=== PATIENT | male | born 1985 | race Caucasian/White ===

== ENCOUNTER 2016-05-12 21:13 | Emergency (ER) | payer OTHER ==
[~2016-05-12 21:13] MED LIST: AUGMENTIN875 MG PO
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
--- NOTE | 2016-05-12 22:20 | ED MED RECONCILIATION SUMMARY ---
Patient: GISELA ISRAEL Medication Reconciliation Report [facility] VisitID: [id number] [address] [place] [address] 30y, M Registration Date/Time: 05/12/2016 Weight: 63.5 kg Height/Length: 67 in. BMI: 21.9 ALLERGIES: Erythromycin The patient's Home Medications are listed below: NONE. The source(s) of the original Home Medication information: Not obtained. The following Medications were given to the patient in the Emergency Department: None. The following Medications were prescribed to the patient: None.
--- NOTE | 2016-05-12 22:20 | ED MED RECONCILIATION SUMMARY ---
Patient: GISELA ISRAEL Medication Reconciliation Report [facility] VisitID: [id number] [address] [place] [address] 30y, M Registration Date/Time: 05/12/2016 Weight: 63.5 kg Height/Length: 67 in. BMI: 21.9 ALLERGIES: Erythromycin The patient's Home Medications are listed below: NONE. The source(s) of the original Home Medication information: Not obtained. The following Medications were given to the patient in the Emergency Department: None. The following Medications were prescribed to the patient: None.
--- NOTE | 2016-05-12 22:20 | ED DISCHARGE INSTRUCTIONS ---
Patient: GISELA ISRAEL General Instructions [facility] VisitID: [id number] [place] [address] 30y, M Registration Date/Time: 05/12/2016 Medication refill. Chronic abdominal pain of undetermined cause. Normal exam upon presentation, while in the ED and at discharge. ADDITIONAL INFORMATION Abdominal Pain,Uncertain Cause [Male] Based on your visit today, the exact cause of your abdominalpain is not clear. Your exam and tests do not indicate a dangerous cause at this time. However, the signs of a serious problem may take more time to appear. Although your evaluation was reassuring today, sometimes early in the course of many conditions, exam and lab tests can appear normal. Therefore, it is important for you to watch for any new symptoms or worsening of your condition. Causes It may not be obvious what caused your symptoms. Pay attention to things that do seem to make your symptoms worse or better and discuss this with your doctor when you follow up. Diagnosis The evaluation of abdominal pain in the emergency department may onlyrequire an exam by the doctor or it may include blood, urine or imaging studies, depending on many factors. Sometimes exams and tests can identify a cause but in many cases, a clear cause is not found. Further testing at follow up visits may help to suggest a clear diagnosis. Home Care Rest as much as possible until your next exam. Try to avoid any medications (unless otherwise directed by your doctor), foods, activities, or other factors that you may have contributed to your symptoms. Try to eat foods that you know that you have tolerated well in the past. Certain diets may be recommended for some conditions that cause abdominal pain. However, since the cause of your symptoms may not be clear, discuss your diet more with your primary care provider or specialist for further recommendations. Eating several small meals per day as opposed to 2 or 3 larger meals may help. Monitor closely for anything that may make your symptoms worse or better. Pay close attention to symptoms below that may indicate worsening of your condition. Follow Up and Precautions See your doctoras instructed or sooneror if your symptoms are not improving.In some cases, you may need more testing. When to Seek Medical Attention Contact your doctor or see medical attention ifany of the following occur: Pain is becoming worse You are unable to take your medications due to excessive vomiting Swelling of the abdomen Fever of 100.4F (38C) or higher, or as directed by your health care provider Blood in vomit or bowel movements (dark red or black color) Jaundice (yellow color of eyes and skin) New onset of weakness, dizziness or fainting New onset of chest, arm, back, neck or jaw pain You have been given the following additional information: Abdominal Pain, Unknown Cause, (Male) (Electronically signed by Maria Luisa Pablo A.R.N.P. 05/12/2016 22:19)
--- NOTE | 2016-05-12 22:20 | ED MAR SUMMARY ---
..... Medication Administration Record [facility] [address] [place], [place] [id number] Patient: GISELA ISRAEL Visit ID: [id number] 30y, M Weight: 63.5 kg Height/Length: 67 in BMI: 21.9 ALLERGIES: Erythromycin
--- NOTE | 2016-05-12 22:20 | ED MAR SUMMARY ---
..... Medication Administration Record [facility] [address] [place], [place] [id number] Patient: GISELA ISRAEL Visit ID: [id number] 30y, M Weight: 63.5 kg Height/Length: 67 in BMI: 21.9 ALLERGIES: Erythromycin
== END 2016-05-12 22:08 | disposition home or self-care (01) ==
LOC: ED SRH 21:13
DX: G89.29 Other chronic pain (principal); R10.9 Unspecified abdominal pain; F17.210 Nicotine dependence, cigarettes, uncomplicated

== ENCOUNTER 2016-07-19 20:30 | Emergency (ER) | payer OTHER ==
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
--- NOTE | 2016-07-19 21:08 | ED ORDER SUMMARY ---
..... Patient: GISELA ISRAEL OrderSheet [facility] VisitID: [id number] [address] [place] [address] 30y, M Registration Date/Time: 07/19/2016 ORDER SHEET Weight: 59.4 kg Allergies: Hydrocodone, Erythromycin GENERAL ORDERS: CBC w Diff Urgent (20:47 07/19/2016 HBivens A.R.N.P.) (Ack 20:48 AMcQuoid ER Tech1) (20:53 HBivens A.R.N.P.) (Cancelled: Other20:53 HBivens A.R.N.P.) CMP Urgent (20:47 07/19/2016 HBivens A.R.N.P.) (Ack 20:48 AMcQuoid ER Tech1) (20:53 HBivens A.R.N.P.) (Cancelled: Other20:53 HBivens A.R.N.P.) MEDICATION ORDERS: IV FLUIDS: IV NS : initial bolus 20 mL/kg, then none - (NOW) (20:47 07/19/2016 HBivens A.R.N.P.) (Cancelled: Other20:53 HBivens A.R.N.P.) IV Saline Lock (20:47 07/19/2016 HBivens A.R.N.P.) (Cancelled: Other20:53 HBivens A.R.N.P.) ORDER SHEET NOTES: [Electronically signed by Imelda Man R.N. (:07/19/2016)] [Electronically signed by Maria Luisa PabloR.N.PAlexei (22:22 07/19/2016)] [Electronically locked/signed by Imelda Man R.N. (:07/19/2016)]
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
--- NOTE | 2016-07-19 21:08 | ED ORDER SUMMARY ---
..... Patient: GISELA ISRAEL OrderSheet [facility] VisitID: [id number] [address] [place] [address] 30y, M Registration Date/Time: 07/19/2016 ORDER SHEET Weight: 59.4 kg Allergies: Hydrocodone, Erythromycin GENERAL ORDERS: CBC w Diff Urgent (20:47 07/19/2016 HBivens A.R.N.P.) (Ack 20:48 AMcQuoid ER Tech1) (20:53 HBivens A.R.N.P.) (Cancelled: Other20:53 HBivens A.R.N.P.) CMP Urgent (20:47 07/19/2016 HBivens A.R.N.P.) (Ack 20:48 AMcQuoid ER Tech1) (20:53 HBivens A.R.N.P.) (Cancelled: Other20:53 HBivens A.R.N.P.) MEDICATION ORDERS: IV FLUIDS: IV NS : initial bolus 20 mL/kg, then none - (NOW) (20:47 07/19/2016 HBivens A.R.N.P.) (Cancelled: Other20:53 HBivens A.R.N.P.) IV Saline Lock (20:47 07/19/2016 HBivens A.R.N.P.) (Cancelled: Other20:53 HBivens A.R.N.P.) ORDER SHEET NOTES: [Electronically signed by Imelda Man R.N. (:07/19/2016)] [Electronically signed by Maria Luisa PabloR.N.PAlexei (22:22 07/19/2016)] [Electronically locked/signed by Imelda Man R.N. (:07/19/2016)]
--- NOTE | 2016-07-19 22:22 | ED DISCHARGE INSTRUCTIONS ---
Patient: GISELA ISRAEL General Instructions [facility] VisitID: [id number] [place] [address] 30y, M Registration Date/Time: 07/19/2016 Abscess check INSTRUCTIONS Protect wound and keep wound area clean. Soak in warm soapy water twice daily. (need to get prescriptions filled and take as directed and discussed). Warnings: GENERAL WARNINGS: Return or contact your physician immediately if your condition worsens or changes unexpectedly, if not improving as expected, or if other problems arise. Specifically return if problem worsens. Follow-up: Follow up with your doctor in about two days even if well and for wound check. Call for an appointment. Summary of care provided to patient. Understanding of the discharge instructions verbalized by patient. ADDITIONAL INFORMATION Abscess [Incision & Drainage] An abscess (sometimes called a boil) occurs when bacteria get trapped under the skin and begin to grow. Pus forms inside the abscess as the body responds to the bacteria. An abscess can occur with an insect bite, ingrown hair, blocked oil gland, pimple, cyst, or puncture wound. Treatment of your abscess has required an incision to drain the pus. If the abscess pocket was large, a gauze packing may have been inserted. This will need to be removed and possibly replaced on your next visit. Antibiotics are not required in the treatment of a simple abscess, unless the infection is spreading into the skin around the wound (known as cellulitis). Healing of the wound will take about one to two weeks depending on the size of the abscess. Healthy tissue will grow from the bottom and sides of the opening until it seals over. Home Care: The wound may drain for the first two days. Cover the wound with a clean dry dressing. If the dressing becomes soaked with blood or pus, change it. If a gauze packing was placed inside the abscess cavity, you may be advised to remove it yourself. You may do this in the shower. Once the packing is removed, you should wash the area in the shower or bath 3 to 4 times a day, until the skin opening has closed. If you were prescribed antibiotics, take them as directed until they are all gone. You may use acetaminophen (Tylenol) or ibuprofen (Motrin, Advil) to control pain, unless another pain medicine was prescribed. [ NOTE: If you have liver disease or ever had a stomach ulcer, talk with your doctor before using these medicines.] Follow Up with your doctor as advised by our staff. If a gauze packing was inserted in your wound, it should be removed in 1-2 days. Check your wound every day for the signs of worsening infection listed below. Get Prompt Medical Attention if any of the following occur: Increasing redness or swelling Red streaks in the skin leading away from the wound Increasing local pain or swelling Continued pus draining from the wound two days after treatment Fever of 100.4F (38C) or higher, or as directed by your healthcare provider Staph Infection (MRSA) "Staph" is the short name for the common bacteria called "staphylococcus aureus". Staph bacteria are often present on the skin without causing an infection. If it gets under the skin an infection occurs. This causes redness, tenderness, swelling and sometimes fluid drainage. MRSA stands for "Methicillin-Resistant Staph Aureus". Unlike a common staph infection, MRSA bacteria are resistant to the usual antibiotics and harder to treat. Also, MRSA is more toxic than common staph bacteria. It can spread quickly throughout the body and cause a life-threatening illness. MRSA is spread to others by direct physical contact with the bacteria. MRSA can also be transmitted from items contaminated by a person who has the bacteria, such as bandages, towels, bed sheets, or sports equipment. It is not spread through the air. Once you have a MRSA skin infection, you are at risk of having it recur in the future. If MRSA infection is suspected, the doctor may take a wound culture to confirm the diagnosis. Any abscess will be drained. One or sometimes two antibiotics that work against MRSA will be prescribed. Home Care: 1) Take any antibiotics prescribed exactly as directed until they are gone. 2) Follow the same washing procedures as outlined for Household Members below. 3) Keep draining wounds covered with clean, dry bandages. Change dressings as they become soiled. 4) You and those in contact with you should wash their hands frequently with soap and warm water or use an alcohol-based hand reporting consultant. Do this after each time you change the bandage or touch the wound. 5) Avoid sharing personal items such as towels, washcloths, razors, clothing, or uniforms. Wash soiled sheets, towels or clothes in hot water with laundry detergent. Use an automatic clothes dryer set on high to kill any remaining bacteria. 6) Remove any artificial nails and nail arabic. 7) If you use a gym, wipe down equipment before and after each use. Treatment Of Household Members If you have been diagnosed with possible MRSA infection, those living with you are at higher risk of carrying the bacteria on their skin or in their nose, even if there is no sign of infection. Bacteria must be removed from the skin of all household members (including you) at the same time, so that it is not passed back and forth. Advise them to remove the bacteria as follows: Wash your whole body (scalp to toes) daily for five days with Hibiclens (chlorhexidine). Scrub fingernails with a brush for one minute twice a day. If any skin infections are present (boils, abscess, infected cut) these must be treated by a doctor. Washing alone will not treat a MRSA infection. Clean counter tops and children's toys; do not share personal items such as toothbrush and razors. It is okay to share glasses, plates, utensils. If antibiotic ointment was prescribed use it as directed. Follow Up with your doctor or as advised by our staff. If a wound culture was taken, call as directed in two days to obtain the results. If the culture result is positive for MRSA, tell medical personnel in the future that you were treated for this type of infection. Get Prompt Medical Attention if any of the following occur: -- Increasing redness, swelling or pain -- Red streaks in the skin around the wound -- Weakness or dizziness -- New appearance of pus or drainage from the wound -- New fever over 100.4 F (38.0 C) You have been given the following additional information: Abscess, Incision And Drainage MRSA Skin Infection, Suspected Or Confirmed (Electronically signed by Maria Luisa Pablo A.R.N.P. 07/19/2016 22:22)
--- NOTE | 2016-07-19 22:22 | ED MED RECONCILIATION SUMMARY ---
Patient: GISELA ISRAEL Medication Reconciliation Report [facility] VisitID: [id number] [address] [place] [address] 30y, M Registration Date/Time: 07/19/2016 Weight: 59.4 kg Height/Length: 68 in. BMI: 19.9 ALLERGIES: Erythromycin, Hydrocodone The patient's Home Medications are listed below: THE FOLLOWING MEDICATIONS NEED TO BE RECONCILED: Percocet Oral The source(s) of the original Home Medication information: Not obtained. The following Medications were given to the patient in the Emergency Department: None. The following Medications were prescribed to the patient: None.
--- NOTE | 2016-07-19 22:22 | ED MAR SUMMARY ---
..... Medication Administration Record [facility] [address] [place], [place] [id number] Patient: GISELA ISRAEL Visit ID: [id number] 30y, M Weight: 59.4 kg Height/Length: 68 in BMI: 19.9 ALLERGIES: Erythromycin, Hydrocodone
--- NOTE | 2016-07-19 22:22 | ED MED RECONCILIATION SUMMARY ---
Patient: GISELA ISRAEL Medication Reconciliation Report [facility] VisitID: [id number] [address] [place] [address] 30y, M Registration Date/Time: 07/19/2016 Weight: 59.4 kg Height/Length: 68 in. BMI: 19.9 ALLERGIES: Erythromycin, Hydrocodone The patient's Home Medications are listed below: THE FOLLOWING MEDICATIONS NEED TO BE RECONCILED: Percocet Oral The source(s) of the original Home Medication information: Not obtained. The following Medications were given to the patient in the Emergency Department: None. The following Medications were prescribed to the patient: None.
--- NOTE | 2016-07-19 22:22 | ED MAR SUMMARY ---
..... Medication Administration Record [facility] [address] [place], [place] [id number] Patient: GISELA ISRAEL Visit ID: [id number] 30y, M Weight: 59.4 kg Height/Length: 68 in BMI: 19.9 ALLERGIES: Erythromycin, Hydrocodone
== END 2016-07-19 21:10 | disposition home or self-care (01) ==
LOC: ED SRH 20:30
DX: L02.11 Cutaneous abscess of neck (principal); F17.210 Nicotine dependence, cigarettes, uncomplicated

== ENCOUNTER 2016-08-12 14:05 | Emergency (ER) | payer OTHER ==
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
--- NOTE | 2016-08-12 17:23 | ED ORDER SUMMARY ---
..... Patient: GISELA ISRAEL OrderSheet [facility] VisitID: [id number] [place] [address] 30y, M Registration Date/Time: 08/12/2016 ORDER SHEET Weight: 54.4 kg (stated) Allergies: Erythromycin, Hydrocodone GENERAL ORDERS: CBC w Diff Urgent (15:21 08/12/2016 Aileen BIRMINGHAM) (Ack 15:38 Joseph) (16:21 MWinterer R.N.) CMP Urgent (15:21 08/12/2016 Aileen [place]) (Ack 15:38 Joseph) (16:21 MWinterer R.N.) Lipase Urgent (15:08/12/2016 Aileen [place]) (Ack 15:38 Joseph) (16:21 MWinterer R.N.) UA-Culture if indicated Urgent (15:21 08/12/2016 Aileen [place]) (Ack 15:38 Joseph) (Cancelled: Patient [id number] MWinterer R.N.) MEDICATION ORDERS: IV FLUIDS: IV NS : initial bolus none -, then 500 mL/hr for 2h (NOW); Urgent (15:20 08/12/2016 Aileen B[place]) (Ack 15:22 MWinterer R.N.) (16:21 MWinterer R.N.) Dilaudid IV 1 mg (NOW) (15:21 08/12/2016 Aileen [place]) (Ack 15:22 MWinterer R.N.) (16:21 MWinterer R.N.) Zofran IV 4 mg (NOW) (15:21 08/12/2016 Aileen [place]) (Ack 15:22 MWinterer R.N.) (16:21 MWinterer R.N.) Morphine IV 4 mg (HIGH ALERT MEDICATION, NOW) (17:10 08/12/2016 MWinterer R.N. verbal order read back to Aileen BIRMINGHAM) (17:10 MWinterer R.N.) ORDER SHEET NOTES: [Electronically signed by Rizwana Bettencourt R.N. (17:59 08/12/2016)] [Electronically signed by Harley Herbert MD (06:54 08/15/2016)] [Electronically locked/signed by Rizwana Bettencourt R.N. (17:59 08/12/2016)]
--- NOTE | 2016-08-12 17:23 | ED ORDER SUMMARY ---
..... Patient: GISELA ISRAEL OrderSheet [facility] VisitID: [id number] [place] [address] 30y, M Registration Date/Time: 08/12/2016 ORDER SHEET Weight: 54.4 kg (stated) Allergies: Erythromycin, Hydrocodone GENERAL ORDERS: CBC w Diff Urgent (15:21 08/12/2016 Aileen [place]) (Ack 15:38 Joseph) (16:21 MWinterer R.N.) CMP Urgent (15:21 08/12/2016 Aileen [place]) (Ack 15:38 Joseph) (16:21 MWinterer R.N.) Lipase Urgent (15:08/12/2016 Aileen [place]) (Ack 15:38 Joseph) (16:21 MWinterer R.N.) UA-Culture if indicated Urgent (15:21 08/12/2016 Aileen [place]) (Ack 15:38 Joseph) (Cancelled: Patient [id number] MWinterer R.N.) MEDICATION ORDERS: IV FLUIDS: IV NS : initial bolus none -, then 500 mL/hr for 2h (NOW); Urgent (15:20 08/12/2016 Aileen B[place]) (Ack 15:22 MWinterer R.N.) (16:21 MWinterer R.N.) Dilaudid IV 1 mg (NOW) (15:21 08/12/2016 Aileen B[place]) (Ack 15:22 MWinterer R.N.) (16:21 MWinterer R.N.) Zofran IV 4 mg (NOW) (15:21 08/12/2016 Aileen B[place]) (Ack 15:22 MWinterer R.N.) (16:21 MWinterer R.N.) Morphine IV 4 mg (HIGH ALERT MEDICATION, NOW) (17:10 08/12/2016 MWinterer R.N. verbal order read back to Aileen BIRMING[place]AM) (17:10 MWinterer R.N.) ORDER SHEET NOTES: [Electronically signed by Rizwana Bettencourt R.N. (17:59 08/12/2016)] [Electronically signed by Harley Herbert MD (06:54 08/15/2016)] [Electronically locked/signed by Rizwana Bettencourt R.N. (17:59 08/12/2016)]
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
--- NOTE | 2016-08-15 06:54 | ED MAR SUMMARY ---
..... Medication Administration Record [facility] [address] [place] [address] Patient: GISELA ISRAEL Visit ID: [id number] 30y, M Weight: 54.4 kg Height/Length: 72 in BMI: 16.3 ALLERGIES: Erythromycin, Hydrocodone Start 15:56 08/12/2016 Rizwana Bettencourt R.N., Stop 17:25 08/12/2016 Rizwana Bettencourt R.N. Medication Administered: IV NS (SALINE), Dose: IV Fluids over 2 hour(s), Rate: 500 mL/hr, Site: #1 left AC. Medication Ordered: IV NS : initial bolus none -, then 500 mL/hr for 2h (NOW); Urgent. Given 15:56 08/12/2016 Rizwana Bettencourt R.N. Medication Administered: DILAUDID [IVP] (HYDROMORPHONE HCL PF), Dose: 1 mg IVP over 1 minute(s), Site: #1 left AC. Medication Ordered: Dilaudid IV 1 mg (NOW). Given 15:56 08/12/2016 Rizwana Bettencourt R.N. Medication Administered: ZOFRAN [IVP] (ONDANSETRON HCL), Dose: 4 mg IVP over 1 minute(s), Site: #1 left AC. Medication Ordered: Zofran IV 4 mg (NOW). Given 17:10 08/12/2016 Rizwana Bettencourt R.N. Medication Administered: MORPHINE [IVP], Dose: 4 mg IVP over 1 minute(s), Site: #1 left AC. Medication Ordered: Morphine IV 4 mg (HIGH ALERT MEDICATION, NOW).
--- NOTE | 2016-08-15 06:54 | ED MED RECONCILIATION SUMMARY ---
Patient: GISELA ISRAEL Medication Reconciliation Report [facility] VisitID: [id number] [address] [place] [address] 30y, M Registration Date/Time: 08/12/2016 Weight: 54.4 kg Height/Length: 72 in. BMI: 16.3 ALLERGIES: Erythromycin, Hydrocodone The patient's Home Medications are listed below: THE FOLLOWING MEDICATIONS NEED TO BE RECONCILED: OxyCODONE HCl Oral 5 mg The source(s) of the original Home Medication information: patient The following Medications were given to the patient in the Emergency Department: IV NS IV Fluids bolus 0, then 500 mL/hr, administered: 08/12/2016 3:56:00 PM Dilaudid [IVP] IVP 1 mg, administered: 08/12/2016 3:56:00 PM Zofran [IVP] IVP 4 mg, administered: 08/12/2016 3:56:00 PM Morphine [IVP] IVP 4 mg, administered: 08/12/2016 5:10:00 PM The following Medications were prescribed to the patient: None.
--- NOTE | 2016-08-15 06:54 | ED MED RECONCILIATION SUMMARY ---
Patient: GISELA ISRAEL Medication Reconciliation Report [facility] VisitID: [id number] [address] [place] [address] 30y, M Registration Date/Time: 08/12/2016 Weight: 54.4 kg Height/Length: 72 in. BMI: 16.3 ALLERGIES: Erythromycin, Hydrocodone The patient's Home Medications are listed below: THE FOLLOWING MEDICATIONS NEED TO BE RECONCILED: OxyCODONE HCl Oral 5 mg The source(s) of the original Home Medication information: patient The following Medications were given to the patient in the Emergency Department: IV NS IV Fluids bolus 0, then 500 mL/hr, administered: 08/12/2016 3:56:00 PM Dilaudid [IVP] IVP 1 mg, administered: 08/12/2016 3:56:00 PM Zofran [IVP] IVP 4 mg, administered: 08/12/2016 3:56:00 PM Morphine [IVP] IVP 4 mg, administered: 08/12/2016 5:10:00 PM The following Medications were prescribed to the patient: None.
--- NOTE | 2016-08-15 06:54 | ED DISCHARGE INSTRUCTIONS ---
Patient: GISELA ISRAEL General Instructions [facility] VisitID: [id number] [address] [place] [address] 30y, M Registration Date/Time: 08/12/2016 ABDOMINAL PAIN SP ILIOSTOMY. INSTRUCTIONS (I HAVE NOT FINISHED MY EVALUATION YOU COULD HAVE A LIFE THREATINING CAUSE OF YOUR ABDOMINAL PAIN. IF YOU CHANGE YOUR MIND PLEASE RETURN AND WE WILL FINISH YOUR CARE ALSO CONSIDER SEEING YOUR SURGEON OR THE ED AT [facility] (Electronically signed by Harley Herbert MD 08/15/2016 6:54)
--- NOTE | 2016-08-15 06:54 | ED MAR SUMMARY ---
..... Medication Administration Record [facility] [address] [place] [address] Patient: GISELA ISRAEL Visit ID: [id number] 30y, M Weight: 54.4 kg Height/Length: 72 in BMI: 16.3 ALLERGIES: Erythromycin, Hydrocodone Start 15:56 08/12/2016 Rizwana Bettencourt R.N., Stop 17:25 08/12/2016 Rizwana Bettencourt R.N. Medication Administered: IV NS (SALINE), Dose: IV Fluids over 2 hour(s), Rate: 500 mL/hr, Site: #1 left AC. Medication Ordered: IV NS : initial bolus none -, then 500 mL/hr for 2h (NOW); Urgent. Given 15:56 08/12/2016 Rizwana Bettencourt R.N. Medication Administered: DILAUDID [IVP] (HYDROMORPHONE HCL PF), Dose: 1 mg IVP over 1 minute(s), Site: #1 left AC. Medication Ordered: Dilaudid IV 1 mg (NOW). Given 15:56 08/12/2016 Rizwana Bettencourt R.N. Medication Administered: ZOFRAN [IVP] (ONDANSETRON HCL), Dose: 4 mg IVP over 1 minute(s), Site: #1 left AC. Medication Ordered: Zofran IV 4 mg (NOW). Given 17:10 08/12/2016 Rizwana Bettencourt R.N. Medication Administered: MORPHINE [IVP], Dose: 4 mg IVP over 1 minute(s), Site: #1 left AC. Medication Ordered: Morphine IV 4 mg (HIGH ALERT MEDICATION, NOW).
--- NOTE | 2016-08-15 06:54 | ED DISCHARGE INSTRUCTIONS ---
Patient: GISELA ISRAEL General Instructions [facility] VisitID: [id number] [address] [place] [address] 30y, M Registration Date/Time: 08/12/2016 ABDOMINAL PAIN SP ILIOSTOMY. INSTRUCTIONS (I HAVE NOT FINISHED MY EVALUATION YOU COULD HAVE A LIFE THREATINING CAUSE OF YOUR ABDOMINAL PAIN. IF YOU CHANGE YOUR MIND PLEASE RETURN AND WE WILL FINISH YOUR CARE ALSO CONSIDER SEEING YOUR SURGEON OR THE ED AT [facility].). (Electronically signed by Harley Herbert MD 08/15/2016 6:54)
== END 2016-08-12 17:25 | disposition home or self-care (01) ==
LOC: ED SRH 14:05
DX: R10.12 Left upper quadrant pain (principal); K50.90 Crohn's disease, unspecified, without complications; Z93.2 Ileostomy status
CPT/HCPCS: 90100; 92235; 95059

== ENCOUNTER 2016-08-20 22:59 | Emergency (ER) | payer OTHER ==
--- NOTE | 2016-08-21 00:24 | DIAGNOSTIC IMAGING REPORT ---
PROCEDURE: CT ABD/PELVIS WITH CONTRAST INDICATION: Crohn disease. Recent surgery with colostomy. 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 TECHNIQUE: 125 ml of Isovue 300 were injected intravenously and axial images were obtained of the entire abdomen and pelvis with sagittal and coronal reformations. COMPARISON: Compared CT abdomen and pelvis on 03/06/2016. FINDINGS: ABDOMEN: Postoperative change with vertical ventral midline surgical wound and right lower quadrant abdominal ostomy. Gallbladder is contracted with moderate ingested material in the stomach. Liver, spleen, pancreas, kidneys, and aorta are normal. PELVIS: There is moderate inspissated stool in the bowel of the central pelvis associated with areas of surgical mesh. There is a left lower quadrant abdominal drainage tube which extends posteriorly and caudally into a 7.5 x 4.5 cm presacral proteinaceous fluid collection (most likely rectal pouch). No evidence of free fluid. IMPRESSION: 1. Interim abdominal surgery with right lower quadrant ostomy. 2. There is a left lower quadrant abdominal drain which extends posteriorly and caudally into a 7.5 x 4.5 cm proteinaceous presacral fluid collection (most likely represents a rectal pouch - - although could represent presacral abscess) . 3. Moderate inspissated stool in the bowel of the central pelvis, which seems atypical for patient with history of total colectomy, although this could represent residual rectal pouch. 4. Findings discussed with Dr. Jean Marie Key. All CT scans at this facility use dose modulation, iterative reconstruction, and/or weight-based dosing when appropriate to reduce radiation dose to as low as reasonably achievable.
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
--- NOTE | 2016-08-21 01:51 | ED ORDER SUMMARY ---
..... Patient: GISELA ISRAEL OrderSheet [facility] VisitID: [id number] [place] [address] 30y, M Registration Date/Time: 08/20/2016 ORDER SHEET Weight: 56.6 kg (stated) Allergies: Erythromycin, Hydrocodone GENERAL ORDERS: CT Abd/Pel w Cont (No) (N/A) Urgent (23:18 08/20/2016 Areli Holland) (Ack 23:24 [facility] Housekeeper) (0:09 RFay) CBC w Diff Urgent (23:19 08/20/2016 Areli Holland) (Ack 23:24 [facility]) (23:27 DDavis R.N.) CMP Urgent (23:08/20/2016 Areli Holland) (Ack 23:24 [facility]) (23:27 DDavis R.N.) UA-Culture if indicated Urgent (23:19 08/20/2016 Areli Holland) (Ack 23:24 [facility]) PT with INR Urgent (23:19 08/20/2016 Areli Holland) (Ack 23:24 [facility]) (23:27 DDavis R.N.) Lipase Urgent (23:19 08/20/2016 Areli Holland) (Ack 23:24 [facility]) (23:27 DDavis R.N.) Lactate, Serum Urgent (23:19 08/20/2016 Areli Holland) (Ack 23:24 [facility]) (23:27 DDavis R.N.) Pulse oximeter (23:19 08/20/2016 Areli Holland) (23:22 DDavis R.N.) (Ack 23:24 [facility]) EKG - ER Stat (01:43 08/21/2016 Areli Holland) (2:13 [facility]) MEDICATION ORDERS: IV FLUIDS: IV NS : initial bolus 1000 mL (1000 mL/hr), then none - for X1 (NOW) (23:19 08/20/2016 Areli Holland) (23:25 DDavis R.N.) Fentanyl IV 50 mcg (HIGH ALERT MEDICATION, NOW) (23:19 08/20/2016 Areli Holland) (23:25 DDavis R.N.) Dilaudid IV 1 mg (HIGH ALERT MEDICATION, NOW) (00:01 08/21/2016 DDavis R.N. verbal order read back to Areli Holland) (0:01 DDavis R.N.) IV NS : initial bolus 1000 mL (1000 mL/hr), then none - for X1 (NOW) (00:44 08/21/2016 Areli Holland) (0:50 DDavis R.N.) Dilaudid IV 1 mg (HIGH ALERT MEDICATION, NOW) (00:56 08/21/2016 Areli Holland) (Ack 0:56 DDavis R.N.) (1:33 DDavis R.N.) Dilaudid IV 1 mg (HIGH ALERT MEDICATION, NOW) (02:07 08/21/2016 Areli Holland) (2:18 DDavis R.N.) ORDER SHEET NOTES: [Electronically signed by Huber Bates R.N. (02:08/21/2016)] [Electronically signed by Jean Marie Key Dr. (06:30 08/21/2016)] [Electronically locked/signed by Huber Bates R.N. (:08/21/2016)]
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
--- NOTE | 2016-08-21 01:51 | ED ORDER SUMMARY ---
..... Patient: GISELA ISRAEL OrderSheet [facility] VisitID: [id number] [place] [address] 30y, M Registration Date/Time: 08/20/2016 ORDER SHEET Weight: 56.6 kg (stated) Allergies: Erythromycin, Hydrocodone GENERAL ORDERS: CT Abd/Pel w Cont (No) (N/A) Urgent (23:18 08/20/2016 Areli Holland) (Ack 23:24 [facility] [employer]) (0:09 RFay) CBC w Diff Urgent (23:19 08/20/2016 Areli Holland) (Ack 23:24 [facility] [employer]) (23:27 DDavis R.N.) CMP Urgent (23:08/20/2016 Areli Holland) (Ack 23:24 [facility] [employer]) (23:27 DDavis R.N.) UA-Culture if indicated Urgent (23:19 08/20/2016 Areli Holland) (Ack 23:24 [facility] [employer]) PT with INR Urgent (23:19 08/20/2016 Areli Holland) (Ack 23:24 [facility] [employer]) (23:27 DDavis R.N.) Lipase Urgent (23:19 08/20/2016 Areli Holland) (Ack 23:24 [facility] [employer]) (23:27 DDavis R.N.) Lactate, Serum Urgent (23:19 08/20/2016 Areli Holland) (Ack 23:24 [facility] [employer]) (23:27 DDavis R.N.) Pulse oximeter (23:19 08/20/2016 Areli Holland) (23:22 DDavis R.N.) (Ack 23:24 [facility] [employer]) EKG - ER Stat (01:43 08/21/2016 Areli Holland) (2:13 [facility] [employer]) MEDICATION ORDERS: IV FLUIDS: IV NS : initial bolus 1000 mL (1000 mL/hr), then none - for X1 (NOW) (23:19 08/20/2016 Areli Holland) (23:25 DDavis R.N.) Fentanyl IV 50 mcg (HIGH ALERT MEDICATION, NOW) (23:19 08/20/2016 Areli Holland) (23:25 DDavis R.N.) Dilaudid IV 1 mg (HIGH ALERT MEDICATION, NOW) (00:01 08/21/2016 DDavis R.N. verbal order read back to Areli Holland) (0:01 DDavis R.N.) IV NS : initial bolus 1000 mL (1000 mL/hr), then none - for X1 (NOW) (00:44 08/21/2016 Areli Holland) (0:50 DDavis R.N.) Dilaudid IV 1 mg (HIGH ALERT MEDICATION, NOW) (00:56 08/21/2016 Areli Holland) (Ack 0:56 DDavis R.N.) (1:33 DDavis R.N.) Dilaudid IV 1 mg (HIGH ALERT MEDICATION, NOW) (02:07 08/21/2016 Areli Holland) (2:18 DDavis R.N.) ORDER SHEET NOTES: [Electronically signed by Huber Bates R.N. (02:08/21/2016)] [Electronically signed by Jean Marie Key Dr. (06:30 08/21/2016)] [Electronically locked/signed by Huber Bates R.N. (:08/21/2016)]
--- NOTE | 2016-08-21 01:51 | ED CLINICAL REPORT ---
Clinical Report - Physicians/Mid Levels Formerly [facility] [address] [place] [address] 08/20/2016 23:01 Patient: GISELA ISRAEL Time Seen: 2312. Arrived- By ambulance. Historian- patient and EMS personnel. HISTORY OF PRESENT ILLNESS Chief Complaint: ABDOMINAL PAIN. At its maximum, severity described as severe. When seen in the E.D., severity described as severe. Modifying factors. Not worsened by anything. Not relieved by anything. This started today and is still present and worsening. It was abrupt in onset and has been constant but is not gone now. It is described as diffuse. No radiation. It is described as generalized in location. The patient has had nausea (resolved). No loss of appetite, vomiting or diarrhea. No additional abdominal pain. (states he ran out of his pain medications). No recent travel. Similar symptoms previously: None. Recent medical care: The patient was seen recently by a health care provider (had recent surgery on his colon. hx of crohn's disease.). REVIEW OF SYSTEMS No constipation, black stools, hematemesis, bloody stools or fever. No headache, chest pain or difficulty breathing. no change in ostomy output. reports normal gas and liquid stool. All systems otherwise negative, except as recorded above. PAST HISTORY See nurses notes. Medications: OxyCODONE HCl Oral 10 mg. Allergies: Erythromycin. Hydrocodone. SOCIAL HISTORY Never smoker. History of occasional drug use: marijuana. No alcohol use. No recent travel. Is a local resident. ADDITIONAL NOTES The nursing notes have been reviewed. PHYSICAL EXAM Vital Signs: Blood pressure normal. Oxygen saturation normal. Appearance: Alert. Oriented X3. Patient in mild distress. (non-toxic appearance). Eyes: Pupils equal, round and reactive to light. Eyes normal inspection. ENT: Ears normal. Nose normal. Pharynx normal. Neck: Normal inspection. Neck supple. No meningeal signs. CVS: Normal heart rate and rhythm. Heart sounds normal. Pulses normal. Respiratory: No respiratory distress. Breath sounds normal. Chest nontender. No rales, rhonchi or wheezes. Abdomen: Soft and nontender. Bowel sounds normal. No mass. (ostomy and drain noted with recent abdominal surgery. wounds are c/d/i. no crepitus. normal ostomy output. drain with serosang drainage that is dark red/brown.). Rectal: (fistulla to the perianal area. no erythema. no signs of gangrene. no crepitus.). Skin: Skin warm and dry. Normal skin color. No rash. Normal skin turgor. Extremities: Extremities exhibit normal ROM. No lower extremity edema. Neuro: Oriented X 3. No motor deficit. No sensory deficit. LABS, X-RAYS, AND EKG EKG: No acute process. No acute ischemia. Normal EKG. Normal sinus rhythm. Rate: 86. Normal P waves. Normal YOCASTA. Normal QRS complex. Normal axis. Normal ST and T waves, QT and QTc. The study has been interpreted contemporaneously by me. The study has been independently viewed by me. The EKG appears to be a good tracing. Abdominal CT: PROCEDURE: CT ABD/PELVIS WITH CONTRAST INDICATION: Crohn disease. Recent surgery with colostomy. 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 TECHNIQUE: 125 ml of Isovue 300 were injected intravenously and axial images were obtained of the entire abdomen and pelvis with sagittal and coronal reformations. COMPARISON: Compared CT abdomen and pelvis on 03/06/2016. FINDINGS: ABDOMEN: Postoperative change with vertical ventral midline surgical wound and right lower quadrant abdominal ostomy. Gallbladder is contracted with moderate ingested material in the stomach. Liver, spleen, pancreas, kidneys, and aorta are normal. PELVIS: There is moderate inspissated stool in the bowel of the central pelvis associated with areas of surgical mesh. There is a left lower quadrant abdominal drainage tube which extends posteriorly and caudally into a 7.5 x 4.5 cm presacral proteinaceous fluid collection (most likely rectal pouch). No evidence of free fluid. IMPRESSION: 1. Interim abdominal surgery with right lower quadrant ostomy. 2. There is a left lower quadrant abdominal drain which extends posteriorly and caudally into a 7.5 x 4.5 cm proteinaceous presacral fluid collection (most likely represents a rectal pouch - - although could represent presacral abscess). 3. Moderate inspissated stool in the bowel of the central pelvis, which seems atypical for patient with history of total colectomy, although this could represent residual rectal pouch. Study type: abdomen and pelvis. Abdominal CT performed with IV contrast. The study was independently viewed by me and interpreted by the radiologist. The study was discussed with the radiologist (via phone and pacs). Laboratory Tests: CBC w Diff: (ROZINA: 08/20/2016 23:20) ( [facility] 08/20/2016 23:36) Final results Test Result Flag Units (Reference) WHITE BLOOD COUNT 10.4 K/uL (4.5-11.5) RED BLOOD COUNT 4.24 L M/uL (4.50-5.90) HEMOGLOBIN 11.8 L gm/dL (13.5-17.5) HEMATOCRIT 36.8 L % (41.0-53.0) MEAN CELL VOLUME 87 fL (80-100) MEAN CORPUSCULAR HGB 28 pg (26-34) MEAN CORPUSCULAR HGB CONC 32 g/dL (31-37) RED CELL DISTRIBUTION WIDTH 13.4 % (11.6-14.8) PLATELET COUNT 511 H K/uL (150-400) LYMPH % 17.2 L % (25-40) MONO % 4.8 % (3-14) GRANULOCYTE % 78.0 PT with INR: (ROZINA: 08/20/2016 23:20) ( [facility] 08/20/2016 23:44) Final results Test Result Flag Units (Reference) INR 1.0 (0.8-1.2) Low Intensity Therapy: INR 1.5-2.0 PT range 18.5-23.1Mod.Intensity Therapy: INR 2.0-3.0 PT range 23.1-31.5High Intensity Therapy: INR 2.5-3.5 PT range 27.4-35.5High Intensity Therapy 2: INR 3.0-4.0 PT range 31.5-39.3 Lactate, Serum: (ROZINA: 08/20/2016 23:20) ( [facility] 08/20/2016 23:54) Final results Test Result Flag Units (Reference) LACTIC ACID 1.5 mmol/L (0.4-2.0) CMP: (ROZINA: 08/20/2016 23:20) ( [facility] 08/20/2016 23:50) Final results Test Result Flag Units (Reference) GLUCOSE 125 H mg/dL (70-110) BUN 9 mg/dL (7-18) CREATININE 0.9 mg/dL (0.6-1.3) Estimated GFR >60 mL/min Estimated GFR- >60 mL/min Note: Persistent reduction over 3 months in eGFR<60 mL/min/1.73 m2 defines CKD. Patients with eGFR values>=60 mL/min/1.73 m2 may also have CKD if evidence ofpersistent proteinuria. Additional information may be foundat [email or web address]. SODIUM 141 mmol/L (136-145) POTASSIUM 3.5 mmol/L (3.5-5.1) CHLORIDE 103 mmol/L (98-107) CARBON DIOXIDE 30 mmol/L (21-32) CALCIUM 8.8 mg/dL (8.5-10.1) TOTAL PROTEIN 7.4 g/dL (6.4-8.2) ALBUMIN 2.8 L g/dL (3.3-5.0) BILIRUBIN, TOTAL 0.2 mg/dL (0.0-1.0) ALKALINE PHOSPHATASE 75 U/L (46-116) AST (SGOT) 16 U/L (15-37) ALT (SGPT) 21 U/L (12-78) LIPASE 50 L U/L (73-393) . PROGRESS AND PROCEDURES Course of Care: The patient is a pleasant 30-year-old male with expressed medical history presenting for Evaluation of abdominal pain. Because of the patient's symptoms here in the emergency department, would be concern for serious intra-abdominal pathology. Patient will also be evaluated with the [place] syncope role. Patient is agreeable to the treatment plan. patient was noted to be mildly hypotensive per EMS. Patient with normotensive blood pressure 1 here in the emergency department. Patient was noted to have slightly decreased blood pressure after short while here in the emergency department. Fluid boluses of been ordered. Patient will be monitored closely. Patient with stable blood pressure 1 here in the emergency department. No acute changes noted. Patient offered more pain medication while here in the emergency department because of his discomfort. CT scan does not show any acute abnormalities however there was some concern about the patient's drain and the area it is draining. Was able to speak to the patient's surgeon in regards to the findings here in the emergency department today. No concern for any acute abnormalities requiring admission to the hospital or transfer to their facility. Recommended patient follow up in clinic in the next few days. Symptoms significantly improved while here in the emergency department. Prior to patient's discharge from the emergency department, blood pressure had significantly improved. Because of the patient's symptoms here in the emergency department, do not feel patient requires admission to the hospital or further emergency department workup/evaluation. Patient with nontender/nonsurgical abdomen At this time. Discussed the patient is workup here in the emergency department including diagnosis, home care, follow-up, and return precautions. all Questions have been answered. The patient expressed understanding of these instructions and was agreeable to them. Patient Ambulatory, in no acute distress, nontoxic upon discharge from the emergency department. Disposition: Discharged. Condition: good. CLINICAL IMPRESSION Acute epigastric abdominal pain. 08/21/2016 00:57 HR: 87. RR: 13. O2 saturation: 95%. 08/21/2016 00:30 BP: 91/47. HR: 87. RR: 13. O2 saturation: 94%. Syncope of unknown cause .12 lead EKG performed. (acute). Blood pressure normal. Oxygen saturation normal. Mild hypotension (acute). INSTRUCTIONS Warnings: GENERAL WARNINGS: Return or contact your physician immediately if your condition worsens or changes unexpectedly, if not improving as expected, or if other problems arise. SPECIFICALLY, return if you develop pain, fever, vomiting, the inability to keep fluids down, blood in vomitus, blood in diarrhea, fainting or lightheadedness. Your Current Medications: CONTINUE TAKING THE FOLLOWING MEDICATIONS: OxyCODONE HCl Oral : 10 mg. Prescription Medications: Oxycodone 5 mg tablets: take 1-2 orally every 6 hours as needed for pain. Dispense fifteen (15). No refill. Follow-up: Return to the emergency department as needed. Follow up with a specialist. Reason for referral: Contact your surgeon in the morning to schedule an appointment as soon as possible. Summary of care provided to patient via paper. Follow up with your doctor as scheduled. Reason for referral: recheck today's concerns. Summary of care provided to patient via paper. Screening today revealed the patient's blood pressure to be in the normal range. The patient should follow up with a primary care provider for blood pressure management. Understanding of the discharge instructions verbalized by patient. (Electronically signed by Jean Marie Key Dr. 08/21/2016 6:30)
--- NOTE | 2016-08-21 06:30 | ED MAR SUMMARY ---
..... Medication Administration Record [facility] [address] [address] Patient: GISELA ISRAEL Visit ID: [id number] 30y, M Weight: 56.6 kg Height/Length: 66 in BMI: 20.1 ALLERGIES: Erythromycin, Hydrocodone Start 23:24 08/20/2016 Huber Bates R.N., Stop 00:25 08/21/2016 Huber Bates R.N. Medication Administered: IV NS (SALINE), Dose: IV Fluids over 1 hour(s), Rate: 1000 mL/hr, Dispensed: 1000 mL bag, Site: #1 right AC. Medication Ordered: IV NS : initial bolus 1000 mL (1000 mL/hr), then none - for X1 (NOW). Given 23:24 08/20/2016 Huber Bates R.N. Medication Administered: FENTANYL [IVP], Dose: 50 mcg IVP over 2 minute(s), Site: #1 right AC. Medication Ordered: Fentanyl IV 50 mcg (HIGH ALERT MEDICATION, NOW). Given 23:59 08/20/2016 Huber Bates R.N. Medication Administered: DILAUDID [IVP] (HYDROMORPHONE HCL PF), Dose: 1 mg IVP over 2 minute(s), Site: #1 right AC. Medication Ordered: Dilaudid IV 1 mg (HIGH ALERT MEDICATION, NOW). Start 00:49 08/21/2016 Huber Bates R.N., Stop 01:50 08/21/2016 Huber Bates R.N. Medication Administered: IV NS (SALINE), Dose: IV Fluids over 1 hour(s), Rate: 1000 mL/hr, Dispensed: 1000 mL bag, Site: #1 right AC. Medication Ordered: IV NS : initial bolus 1000 mL (1000 mL/hr), then none - for X1 (NOW). Given 01:15 08/21/2016 Huber Bates R.N. Medication Administered: DILAUDID [IVP] (HYDROMORPHONE HCL PF), Dose: 1 mg IVP over 2 minute(s), Site: #1 right AC. Medication Ordered: Dilaudid IV 1 mg (HIGH ALERT MEDICATION, NOW). Given 02:12 08/21/2016 Huber Bates R.N. Medication Administered: DILAUDID [IVP] (HYDROMORPHONE HCL PF), Dose: 1 mg IVP over 2 minute(s), Site: #1 right AC. Medication Ordered: Dilaudid IV 1 mg (HIGH ALERT MEDICATION, NOW).
--- NOTE | 2016-08-21 06:30 | ED DISCHARGE INSTRUCTIONS ---
Patient: GISELA ISRAEL General Instructions [facility] VisitID: [id number] [place] [address] 30y, M Registration Date/Time: 08/20/2016 Acute epigastric abdominal pain. 08/21/2016 00:57 HR: 87. RR: 13. O2 saturation: 95%. 08/21/2016 00:30 BP: 91/47. HR: 87. RR: 13. O2 saturation: 94%. Syncope of unknown cause .12 lead EKG performed. (acute). Blood pressure normal. Oxygen saturation normal. Mild hypotension (acute). INSTRUCTIONS Warnings: GENERAL WARNINGS: Return or contact your physician immediately if your condition worsens or changes unexpectedly, if not improving as expected, or if other problems arise. SPECIFICALLY, return if you develop pain, fever, vomiting, the inability to keep fluids down, blood in vomitus, blood in diarrhea, fainting or lightheadedness. Your Current Medications: CONTINUE TAKING THE FOLLOWING MEDICATIONS: OxyCODONE HCl Oral : 10 mg. Prescription Medications: Oxycodone 5 mg tablets: take 1-2 orally every 6 hours as needed for pain. Dispense fifteen (15). No refill. Follow-up: Return to the emergency department as needed. Follow up with a specialist. Reason for referral: Contact your surgeon in the morning to schedule an appointment as soon as possible. Summary of care provided to patient via paper. Follow up with your doctor as scheduled. Reason for referral: recheck today's concerns. Summary of care provided to patient via paper. Screening today revealed the patient's blood pressure to be in the normal range. The patient should follow up with a primary care provider for blood pressure management. Understanding of the discharge instructions verbalized by patient. ADDITIONAL INFORMATION Fainting:Uncertain Cause Fainting (syncope) is a temporary loss of consciousness ("passing out"). It occurs when blood flow to the brain is reduced. Near-fainting ("near-syncope") is very similar to fainting, but you do not fully "pass out". The common minor causes of fainting include: sudden fear, pain, nausea, emotional stress and overexertion. Suddenly standing up after sitting or lying for a long time can also cause fainting. The more serious causes for fainting are due to either a very slow or very fast or very slow heart beat ("arrhythmia"), other types of heart disease, dehydration, blood loss, seizure, stroke or ruptured blood vessel in the brain. Taking too much high blood pressure medicine can also cause low blood pressure and fainting. The exact cause of your episode is not certain. However, the tests today did not show any of the serious causes of fainting. Sometimes further testing is needed to find out if a serious problem exists. Therefore, it is important that you follow-up with your doctor as advised. Home Care: 1) Rest today. You may resume your normal activities when you are feeling back to normal. It is best to remain with someone who can check on you for the next 24 hours to watch for another episode of fainting. 2) If you become light-headed or dizzy, lie down immediately or sit with your head between your knees. 3) Because we do not know the exact cause of your near fainting spell, it is possible for another spell to occur without warning. Therefore, do not drive a car or operate dangerous equipment, do not take a bath alone (use a shower instead) and do not swim alone until your doctor says that you are no longer in danger of having another fainting spell. Follow Up with your doctor as advised. Get Prompt Medical Attention if any of the following occur: -- Another fainting spell occurs, which is not explained by the common causes listed above -- Chest, arm, neck, jaw, back or abdominal pain -- Shortness of breath -- Severe headache or seizure -- Blood in vomit, stools (black or red color) -- Unexpected vaginal bleeding -- Palpitations (very rapid or very slow or irregular heart beat) -- Signs of stroke: Weakness of an arm or leg or one side of the face Difficulty with speech or vision Extreme drowsiness, confusion, dizziness or fainting Hypotension (All Causes) The normal blood pressure range is between 90/60 and 140/80. Low blood pressure (also calledhypotension) is a decrease in blood pressure from what is normal for you. Low blood pressure can cause symptoms of dizziness, lightheadedness or fainting. Some of the causes for low blood pressure: Certain medicines, including: High blood pressure pills Diuretics (water pills) Some heart medicines Some antidepressants Pain, anxiety, sedative, and sleeping medicines Dehydration, severe infection, fever Blood loss (for example, bleeding from the stomach or intestines) Congestive heart failure (CHF) Change in heart rate or rhythm (arrhythmia) Orthostatic hypotension(from a sudden change in body position from lying down to standing) Alcohol or drug intoxication Altered reflexes of the blood vessels and heart responsible for keeping the blood pressure normal with changes of position Treatment will depend on the cause of your low blood pressure. Home Care: Rest until symptoms improve. Follow the treatment plan described by your doctor. Follow Up with your doctor or as advised by our staff. Get Prompt Medical Attention if any of the following occur: Dizziness, lightheadedness, or fainting Black or red color in your stools or vomit Shortness of breath or difficulty breathing Chest, shoulder, arm, neck or upper back pain Abdominal pain, persistent diarrhea or vomiting Inability to eat or drink Fever of 100.4F (38C) or higher, or as directed by your healthcare provider Urinary burning or foul-smelling urine Oxycodone Hydrochloride, Acetaminophen Oral tablet What is this medicine? ACETAMINOPHEN; OXYCODONE (a set a MIRIAM brissa fen; ox i KOE done) is a pain reliever. It is used to treat mild to moderate pain. How should I use this medicine? Take this medicine by mouth with a full glass of water. Follow the directions on the prescription label. Take your medicine at regular intervals. Do not take your medicine more often than directed. Talk to your dry cleaner hand regarding the use of this medicine in children. Special care may be needed. Patients over 65 years old may have a stronger reaction and need a smaller dose. What side effects may I notice from receiving this medicine? Side effects that you should report to your doctor or health acute care certified nursing assistant as soon as possible: allergic reactions like skin rash, itching or hives, swelling of the face, lips, or tongue breathing difficulties, wheezing confusion light headedness or fainting spells severe stomach pain yellowing of the skin or the whites of the eyes Side effects that usually do not require medical attention (report to your doctor or health acute care certified nursing assistant if they continue or are bothersome): dizziness drowsiness nausea vomiting What may interact with this medicine? alcohol antihistamines barbiturates like amobarbital, butalbital, butabarbital, methohexital, pentobarbital, phenobarbital, thiopental, and secobarbital benztropine drugs for bladder problems like solifenacin, trospium, oxybutynin, tolterodine, hyoscyamine, and methscopolamine drugs for breathing problems like ipratropium and tiotropium drugs for certain stomach or intestine problems like propantheline, homatropine methylbromide, glycopyrrolate, atropine, belladonna, and dicyclomine general anesthetics like etomidate, ketamine, nitrous oxide, propofol, desflurane, enflurane, halothane, isoflurane, and sevoflurane medicines for depression, anxiety, or psychotic disturbances medicines for sleep muscle relaxants naltrexone narcotic medicines (opiates) for pain phenothiazines like perphenazine, thioridazine, chlorpromazine, mesoridazine, fluphenazine, prochlorperazine, promazine, and trifluoperazine scopolamine tramadol trihexyphenidyl What if I miss a dose? If you miss a dose, take it as soon as you can. If it is almost time for your next dose, take only that dose. Do not take double or extra doses. Where should I keep my medicine? Keep out of the reach of children. This medicine can be abused. Keep your medicine in a safe place to protect it from theft. Do not share this medicine with anyone. Selling or giving away this medicine is dangerous and against the law. Store at room temperature between 20 and 25 degrees C (68 and 77 degrees F). Keep container tightly closed. Protect from light. This medicine may cause accidental overdose and if it is taken by other adults, children, or pets. Flush any unused medicine down the toilet to reduce the chance of harm. Do not use the medicine after the expiration date. What should I tell my health care provider before I take this medicine? They need to know if you have any of these conditions: brain tumor Crohn's disease, inflammatory bowel disease, or ulcerative colitis drink more than 3 alcohol containing drinks per day drug abuse or addiction head injury heart or circulation problems kidney disease or problems going to the bathroom liver disease lung disease, asthma, or breathing problems an unusual or allergic reaction to acetaminophen, oxycodone, other opioid analgesics, other medicines, foods, dyes, or preservatives or trying to get breast-feeding What should I watch for while using this medicine? Tell your doctor or health acute care certified nursing assistant if your pain does not go away, if it gets worse, or if you have new or a different type of pain. You may develop tolerance to the medicine. Tolerance means that you will need a higher dose of the medication for pain relief. Tolerance is normal and is expected if you take this medicine for a long time. Do not suddenly stop taking your medicine because you may develop a severe reaction. Your body becomes used to the medicine. This does NOT mean you are addicted. Addiction is a behavior related to getting and using a drug for a non-medical reason. If you have pain, you have a medical reason to take pain medicine. Your doctor will tell you how much medicine to take. If your doctor wants you to stop the medicine, the dose will be slowly lowered over time to avoid any side effects. You may get drowsy or dizzy. Do not drive, use machinery, or do anything that needs mental alertness until you know how this medicine affects you. Do not stand or sit up quickly, especially if you are an older patient. This reduces the risk of dizzy or fainting spells. Alcohol may interfere with the effect of this medicine. Avoid alcoholic drinks. There are different types of narcotic medicines (opiates) for pain. If you take more than one type at the same time, you may have more side effects. Give your health care provider a list of all medicines you use. Your doctor will tell you how much medicine to take. Do not take more medicine than directed. Call emergency for help if you have problems breathing. The medicine will cause constipation. Try to have a bowel movement at least every 2 to 3 days. If you do not have a bowel movement for 3 days, call your doctor or health acute care certified nursing assistant. Do not take Tylenol (acetaminophen) or medicines that have acetaminophen with this medicine. Too much acetaminophen can be very dangerous. Many nonprescription medicines contain acetaminophen. Always read the labels carefully to avoid taking more acetaminophen. You have been given the following additional information: Syncope, Unk Cause Hypotension, All Causes Oxycodone Hydrochloride, Acetaminophen Oral tablet (Electronically signed by Jean Marie Key Dr. 08/21/2016 6:30)
--- NOTE | 2016-08-21 06:30 | ED MED RECONCILIATION SUMMARY ---
Patient: GISELA ISRAEL Medication Reconciliation Report [facility] VisitID: [id number] [address] [place] [address] 30y, M Registration Date/Time: 08/20/2016 Weight: 56.6 kg Height/Length: 66 in. BMI: 20.1 ALLERGIES: Erythromycin, Hydrocodone The patient's Home Medications are listed below: CONTINUE TAKING THE FOLLOWING MEDICATIONS: OxyCODONE HCl Oral 10 mg The source(s) of the original Home Medication information: Not obtained. The following Medications were given to the patient in the Emergency Department: IV NS IV Fluids bolus 0, then 1000 mL/hr, administered: 08/20/2016 11:24:00 PM Fentanyl [IVP] IVP 50 mcg, administered: 08/20/2016 11:24:00 PM Dilaudid [IVP] IVP 1 mg, administered: 08/20/2016 11:59:00 PM IV NS IV Fluids bolus 0, then 1000 mL/hr, administered: 08/21/2016 12:49:00 AM Dilaudid [IVP] IVP 1 mg, administered: 08/21/2016 1:15:00 AM Dilaudid [IVP] IVP 1 mg, administered: 08/21/2016 2:12:00 AM The following Medications were prescribed to the patient: Oxycodone 5 mg tablets: take 1-2 orally every 6 hours as needed for pain. Dispense fifteen (15). No refill. -- Jean Marie Key Dr.
--- NOTE | 2016-08-21 06:30 | ED MAR SUMMARY ---
..... Medication Administration Record [facility] [address] [place] [place] [address] Patient: GISELA ISRAEL Visit ID: [id number] 30y, M Weight: 56.6 kg Height/Length: 66 in BMI: 20.1 ALLERGIES: Erythromycin, Hydrocodone Start 23:24 08/20/2016 Huber Bates R.N., Stop 00:25 08/21/2016 Huber Bates R.N. Medication Administered: IV NS (SALINE), Dose: IV Fluids over 1 hour(s), Rate: 1000 mL/hr, Dispensed: 1000 mL bag, Site: #1 right AC. Medication Ordered: IV NS : initial bolus 1000 mL (1000 mL/hr), then none - for X1 (NOW). Given 23:24 08/20/2016 Huber Bates R.N. Medication Administered: FENTANYL [IVP], Dose: 50 mcg IVP over 2 minute(s), Site: #1 right AC. Medication Ordered: Fentanyl IV 50 mcg (HIGH ALERT MEDICATION, NOW). Given 23:59 08/20/2016 Huber Bates R.N. Medication Administered: DILAUDID [IVP] (HYDROMORPHONE HCL PF), Dose: 1 mg IVP over 2 minute(s), Site: #1 right AC. Medication Ordered: Dilaudid IV 1 mg (HIGH ALERT MEDICATION, NOW). Start 00:49 08/21/2016 Huber Bates R.N., Stop 01:50 08/21/2016 Hbuer Bates R.N. Medication Administered: IV NS (SALINE), Dose: IV Fluids over 1 hour(s), Rate: 1000 mL/hr, Dispensed: 1000 mL bag, Site: #1 right AC. Medication Ordered: IV NS : initial bolus 1000 mL (1000 mL/hr), then none - for X1 (NOW). Given 01:15 08/21/2016 Huber Bates R.N. Medication Administered: DILAUDID [IVP] (HYDROMORPHONE HCL PF), Dose: 1 mg IVP over 2 minute(s), Site: #1 right AC. Medication Ordered: Dilaudid IV 1 mg (HIGH ALERT MEDICATION, NOW). Given 02:12 08/21/2016 Huber Bates R.N. Medication Administered: DILAUDID [IVP] (HYDROMORPHONE HCL PF), Dose: 1 mg IVP over 2 minute(s), Site: #1 right AC. Medication Ordered: Dilaudid IV 1 mg (HIGH ALERT MEDICATION, NOW).
--- NOTE | 2016-08-21 06:30 | ED MED RECONCILIATION SUMMARY ---
Patient: GISELA ISRAEL Medication Reconciliation Report [facility] VisitID: [id number] [address] [place] [address] 30y, M Registration Date/Time: 08/20/2016 Weight: 56.6 kg Height/Length: 66 in. BMI: 20.1 ALLERGIES: Erythromycin, Hydrocodone The patient's Home Medications are listed below: CONTINUE TAKING THE FOLLOWING MEDICATIONS: OxyCODONE HCl Oral 10 mg The source(s) of the original Home Medication information: Not obtained. The following Medications were given to the patient in the Emergency Department: IV NS IV Fluids bolus 0, then 1000 mL/hr, administered: 08/20/2016 11:24:00 PM Fentanyl [IVP] IVP 50 mcg, administered: 08/20/2016 11:24:00 PM Dilaudid [IVP] IVP 1 mg, administered: 08/20/2016 11:59:00 PM IV NS IV Fluids bolus 0, then 1000 mL/hr, administered: 08/21/2016 12:49:00 AM Dilaudid [IVP] IVP 1 mg, administered: 08/21/2016 1:15:00 AM Dilaudid [IVP] IVP 1 mg, administered: 08/21/2016 2:12:00 AM The following Medications were prescribed to the patient: Oxycodone 5 mg tablets: take 1-2 orally every 6 hours as needed for pain. Dispense fifteen (15). No refill. -- Jean Marie Key Dr.
== END 2016-08-21 02:19 | disposition home or self-care (01) ==
LOC: ED SRH 22:59
DX: I95.9 Hypotension, unspecified (principal); R55 Syncope and collapse; R10.13 Epigastric pain; K50.90 Crohn's disease, unspecified, without complications; Z93.3 Colostomy status; Z88.1 Allergy status to other antibiotic agents; Z88.5 Allergy status to narcotic agent
CPT/HCPCS: 90100; 92031; 92235; 94060; 95059

== ENCOUNTER 2016-08-22 14:11 | Emergency (ER) | payer OTHER ==
--- NOTE | 2016-08-22 15:00 | ED ORDER SUMMARY ---
..... Patient: GISELA ISRAEL OrderSheet [facility] VisitID: [id number] [address] [place] [address] 30y, M Registration Date/Time: 08/22/2016 ORDER SHEET Weight: 56.6 kg (stated) Allergies: Erythromycin, Hydrocodone GENERAL ORDERS: MEDICATION ORDERS: Toradol IM 60 mg (NOW) (14:59 08/22/2016 Yenni A.R.N.P.) (Cancelled: Patient Auokhdx24:25 Len R.N.) IV FLUIDS: ORDER SHEET NOTES: [Electronically signed by Cindy Gilliland R.N. (15:51 08/22/2016)] [Electronically signed by Cindy Gilliland R.N. (15:52 08/22/2016)] [Electronically signed by Maria Luisa Pablo A.R.N.PAlexei (17:19 08/22/2016)] [Electronically locked/signed by Cindy Gilliland R.N. (15:51 08/22/2016)]
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
--- NOTE | 2016-08-22 15:00 | ED ORDER SUMMARY ---
..... Patient: GISELA ISRAEL OrderSheet [facility] VisitID: [id number] [address] [place] [address] 30y, M Registration Date/Time: 08/22/2016 ORDER SHEET Weight: 56.6 kg (stated) Allergies: Erythromycin, Hydrocodone GENERAL ORDERS: MEDICATION ORDERS: Toradol IM 60 mg (NOW) (14:59 08/22/2016 Yenni A.R.N.P.) (Cancelled: Patient Mymxsjx30:25 Len R.N.) IV FLUIDS: ORDER SHEET NOTES: [Electronically signed by Cindy Gilliland R.N. (15:51 08/22/2016)] [Electronically signed by Cindy Gilliland R.N. (15:52 08/22/2016)] [Electronically signed by Maria Luisa Pablo A.R.N.PAlexei (17:19 08/22/2016)] [Electronically locked/signed by Cindy Gilliland R.N. (15:51 08/22/2016)]
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
--- NOTE | 2016-08-22 17:19 | ED DISCHARGE INSTRUCTIONS ---
Patient: GISELA ISRAEL General Instructions [facility] VisitID: [id number] [place] [address] 30y, M Registration Date/Time: 08/22/2016 Chronic abdominal pain of undetermined cause. Chronic substance abuse- marijuana, oxycodone with intoxication. INSTRUCTIONS Warnings: GENERAL WARNINGS: Return or contact your physician immediately if your condition worsens or changes unexpectedly, if not improving as expected, or if other problems arise. SPECIFICALLY, return if you develop pain in the abdomen or pelvis, fever, the inability to keep fluids down, blood in vomitus, blood in diarrhea, fainting or lightheadedness. Prescription Medications: Naprosyn 500 mg tablets: take 1 orally every 12 hours as needed for pain. Dispense twenty (20). No refills. Substitution is permissible. Follow-up: Follow up with your doctor tomorrow as scheduled even if well. Summary of care provided to patient. Understanding of the discharge instructions verbalized by patient. ADDITIONAL INFORMATION Abdominal Pain,Uncertain Cause [Male] Based on your visit today, the exact cause of your abdominalpain is not clear. Your exam and tests do not indicate a dangerous cause at this time. However, the signs of a serious problem may take more time to appear. Although your evaluation was reassuring today, sometimes early in the course of many conditions, exam and lab tests can appear normal. Therefore, it is important for you to watch for any new symptoms or worsening of your condition. Causes It may not be obvious what caused your symptoms. Pay attention to things that do seem to make your symptoms worse or better and discuss this with your doctor when you follow up. Diagnosis The evaluation of abdominal pain in the emergency department may onlyrequire an exam by the doctor or it may include blood, urine or imaging studies, depending on many factors. Sometimes exams and tests can identify a cause but in many cases, a clear cause is not found. Further testing at follow up visits may help to suggest a clear diagnosis. Home Care Rest as much as possible until your next exam. Try to avoid any medications (unless otherwise directed by your doctor), foods, activities, or other factors that you may have contributed to your symptoms. Try to eat foods that you know that you have tolerated well in the past. Certain diets may be recommended for some conditions that cause abdominal pain. However, since the cause of your symptoms may not be clear, discuss your diet more with your primary care provider or specialist for further recommendations. Eating several small meals per day as opposed to 2 or 3 larger meals may help. Monitor closely for anything that may make your symptoms worse or better. Pay close attention to symptoms below that may indicate worsening of your condition. Follow Up and Precautions See your doctoras instructed or sooneror if your symptoms are not improving.In some cases, you may need more testing. When to Seek Medical Attention Contact your doctor or see medical attention ifany of the following occur: Pain is becoming worse You are unable to take your medications due to excessive vomiting Swelling of the abdomen Fever of 100.4F (38C) or higher, or as directed by your health care provider Blood in vomit or bowel movements (dark red or black color) Jaundice (yellow color of eyes and skin) New onset of weakness, dizziness or fainting New onset of chest, arm, back, neck or jaw pain Opiate Abuse Use and abuse of heroin or prescription pain medicines (Vicodin, codeine) may lead to physical ADDICTION or psychological DEPENDENCE. Once this occurs, you are at greater risk for any of the following: - Craving for the drug and unable to stop using the drug even though you think you want to stop (psychological dependence) - Drug withdrawal symptoms if you stop taking the drug (physical addiction) - Loss of your job or your family - Arrest, conviction and detention sentence for possession of an illegal substance or for driving under the influence of such a substance - Accidental injuries to yourself or others while you are under the influence of the drug (in a car or at home). - HIV infection (much greater risk if you use IV drugs) - Other sexually transmitted diseases (Herpes, chlamydia, gonorrhea and others) - Severe and fatal infection of the heart valves (if you use IV drugs) - Stroke, heart attack, hepatitis B or C, kidney failure - from overdose Home Care: 1) Admit you have a drug problem. Ask for help from your family and close friends. 2) Seek professional help. This could be individual psychotherapy, counseling, or a drug treatment program (outpatient or residential). 3) Join a self-help group for drug abuse. 4) Avoid friends who abuse drugs themselves or tempt you to continue your habit 5) Eat a balanced diet and begin a regular exercise program. Follow Up with your doctor or as advised by our staff. Contact one of the resources below for help. National [place] on Alcoholism and Drug Dependence, www.ncadd.org 630-524-FZUS Narcotics Anonymous (check your phone book for a local listing or call 282-611-3288) www.na.org National Alcohol and Substance Abuse Information Center (for referral to treatment programs) [employer] 514-291-4637 Get Prompt Medical Attention if any of the following occur: -- Symptoms of withdrawal (agitation, anxiety, trembling, sweats, diarrhea, unable to sleep) -- Chest pain -- Unexplained fever over 100.4 F (38.0 C) -- Excessive drowsiness or inability to be awakened -- Slow breathing under 8 breaths per minute -- Shortness of breath or cough with colored sputum -- Redness, swelling or tenderness at an injection site Pain Management: Chronic You have a painful condition that has required frequent use of narcotic-type pain medicine. We would like to see that you receive the best possible care for your problem. To achieve this, you must have apersonal physician who can supervise a treatment plan for you. You may locate a personal physician on your own or contact one of the doctors whose name has been given to you. If your physician determines that you need to visit the ER for pain control, that doctor should provide you with a PAIN CONTRACT. This is a letter from your doctor which describes what pain medicine you may receive, how much and how often. You sign it agreeing to the terms of the treatment plan. Bring this with you each time you come to this facility. It will help the Emergency Physician provide the proper treatment for you with minimal delay. Please Note: IN THE FUTURE YOU WILL NOT BE ABLE TO RECEIVE Narcotic Pain Medicine From This Facility Without A Pain Contract Or Telephone Approval From Your Personal Physician. Naproxen Sodium Oral tablet What is this medicine? NAPROXEN (na PROX en) is a non-steroidal anti-inflammatory drug (NSAID). It is used to reduce swelling and to treat pain. This medicine may be used for dental pain, headache, or painful monthly periods. It is also used for painful joint and muscular problems such as arthritis, tendinitis, bursitis, and gout. How should I use this medicine? Take this medicine by mouth with a glass of water. Follow the directions on the prescription label. Take it with food if your stomach gets upset. Try to not lie down for at least 10 minutes after you take it. Take your medicine at regular intervals. Do not take your medicine more often than directed. Long-term, continuous use may increase the risk of heart attack or stroke. A special MedGuide will be given to you by the pharmacist with each prescription and refill. Be sure to read this information carefully each time. Talk to your turn out worker regarding the use of this medicine in children. Special care may be needed. What side effects may I notice from receiving this medicine? Side effects that you should report to your doctor or health career transition specialist as soon as possible: black or bloody stools, blood in the urine or vomit blurred vision chest pain difficulty breathing or wheezing nausea or vomiting severe stomach pain skin rash, skin redness, blistering or peeling skin, hives, or itching slurred speech or weakness on one side of the body swelling of eyelids, throat, lips unexplained weight gain or swelling unusually weak or tired yellowing of eyes or skin Side effects that usually do not require medical attention (report to your doctor or health career transition specialist if they continue or are bothersome): constipation headache heartburn What may interact with this medicine? alcohol aspirin cidofovir diuretics lithium methotrexate other drugs for inflammation like ketorolac or prednisone pemetrexed probenecid warfarin What if I miss a dose? If you miss a dose, take it as soon as you can. If it is almost time for your next dose, take only that dose. Do not take double or extra doses. Where should I keep my medicine? Keep out of the reach of children. Store at room temperature between 15 and 30 degrees C (59 and 86 degrees F). Keep container tightly closed. Throw away any unused medicine after the expiration date. What should I tell my health care provider before I take this medicine? They need to know if you have any of these conditions: asthma cigarette smoker drink more than 3 alcohol containing drinks a day heart disease or circulation problems such as heart failure or leg edema (fluid retention) high blood pressure kidney disease liver disease stomach bleeding or ulcers an unusual or allergic reaction to naproxen, aspirin, other NSAIDs, other medicines, foods, dyes, or preservatives or trying to get breast-feeding What should I watch for while using this medicine? Tell your doctor or health career transition specialist if your pain does not get better. Talk to your doctor before taking another medicine for pain. Do not treat yourself. This medicine does not prevent heart attack or stroke. In fact, this medicine may increase the chance of a heart attack or stroke. The chance may increase with longer use of this medicine and in people who have heart disease. If you take aspirin to prevent heart attack or stroke, talk with your doctor or health career transition specialist. Do not take other medicines that contain aspirin, ibuprofen, or naproxen with this medicine. Side effects such as stomach upset, nausea, or ulcers may be more likely to occur. Many medicines available without a prescription should not be taken with this medicine. This medicine can cause ulcers and bleeding in the stomach and intestines at any time during treatment. Do not smoke cigarettes or drink alcohol. These increase irritation to your stomach and can make it more susceptible to damage from this medicine. Ulcers and bleeding can happen without warning symptoms and can cause . You may get drowsy or dizzy. Do not drive, use machinery, or do anything that needs mental alertness until you know how this medicine affects you. Do not stand or sit up quickly, especially if you are an older patient. This reduces the risk of dizzy or fainting spells. This medicine can cause you to bleed more easily. Try to avoid damage to your teeth and gums when you brush or floss your teeth. You have been given the following additional information: Abdominal Pain, Unknown Cause, (Male) Opiate Abuse Drug Seeking Behavior, Pain Contract Required Naproxen Sodium Oral tablet (Electronically signed by Maria Luisa Pablo A.R.N.P. 08/22/2016 17:19)
--- NOTE | 2016-08-22 17:19 | ED MAR SUMMARY ---
..... Medication Administration Record [facility] [address] [place], [place] [id number] Patient: GISELA ISRAEL Visit ID: [id number] 30y, M Weight: 56.6 kg Height/Length: 68 in BMI: 19 ALLERGIES: Erythromycin, Hydrocodone
--- NOTE | 2016-08-22 17:19 | ED MAR SUMMARY ---
..... Medication Administration Record [facility] [address] [place], [place] [id number] Patient: GISELA ISRAEL Visit ID: [id number] 30y, M Weight: 56.6 kg Height/Length: 68 in BMI: 19 ALLERGIES: Erythromycin, Hydrocodone
--- NOTE | 2016-08-22 17:19 | ED DISCHARGE INSTRUCTIONS ---
Patient: GISELA ISRAEL General Instructions [facility] VisitID: [id number] [place] [address] 30y, M Registration Date/Time: 08/22/2016 Chronic abdominal pain of undetermined cause. Chronic substance abuse- marijuana, oxycodone with intoxication. INSTRUCTIONS Warnings: GENERAL WARNINGS: Return or contact your physician immediately if your condition worsens or changes unexpectedly, if not improving as expected, or if other problems arise. SPECIFICALLY, return if you develop pain in the abdomen or pelvis, fever, the inability to keep fluids down, blood in vomitus, blood in diarrhea, fainting or lightheadedness. Prescription Medications: Naprosyn 500 mg tablets: take 1 orally every 12 hours as needed for pain. Dispense twenty (20). No refills. Substitution is permissible. Follow-up: Follow up with your doctor tomorrow as scheduled even if well. Summary of care provided to patient. Understanding of the discharge instructions verbalized by patient. ADDITIONAL INFORMATION Abdominal Pain,Uncertain Cause [Male] Based on your visit today, the exact cause of your abdominalpain is not clear. Your exam and tests do not indicate a dangerous cause at this time. However, the signs of a serious problem may take more time to appear. Although your evaluation was reassuring today, sometimes early in the course of many conditions, exam and lab tests can appear normal. Therefore, it is important for you to watch for any new symptoms or worsening of your condition. Causes It may not be obvious what caused your symptoms. Pay attention to things that do seem to make your symptoms worse or better and discuss this with your doctor when you follow up. Diagnosis The evaluation of abdominal pain in the emergency department may onlyrequire an exam by the doctor or it may include blood, urine or imaging studies, depending on many factors. Sometimes exams and tests can identify a cause but in many cases, a clear cause is not found. Further testing at follow up visits may help to suggest a clear diagnosis. Home Care Rest as much as possible until your next exam. Try to avoid any medications (unless otherwise directed by your doctor), foods, activities, or other factors that you may have contributed to your symptoms. Try to eat foods that you know that you have tolerated well in the past. Certain diets may be recommended for some conditions that cause abdominal pain. However, since the cause of your symptoms may not be clear, discuss your diet more with your primary care provider or specialist for further recommendations. Eating several small meals per day as opposed to 2 or 3 larger meals may help. Monitor closely for anything that may make your symptoms worse or better. Pay close attention to symptoms below that may indicate worsening of your condition. Follow Up and Precautions See your doctoras instructed or sooneror if your symptoms are not improving.In some cases, you may need more testing. When to Seek Medical Attention Contact your doctor or see medical attention ifany of the following occur: Pain is becoming worse You are unable to take your medications due to excessive vomiting Swelling of the abdomen Fever of 100.4F (38C) or higher, or as directed by your health care provider Blood in vomit or bowel movements (dark red or black color) Jaundice (yellow color of eyes and skin) New onset of weakness, dizziness or fainting New onset of chest, arm, back, neck or jaw pain Opiate Abuse Use and abuse of heroin or prescription pain medicines (Vicodin, codeine) may lead to physical ADDICTION or psychological DEPENDENCE. Once this occurs, you are at greater risk for any of the following: - Craving for the drug and unable to stop using the drug even though you think you want to stop (psychological dependence) - Drug withdrawal symptoms if you stop taking the drug (physical addiction) - Loss of your job or your family - Arrest, conviction and fpc sentence for possession of an illegal substance or for driving under the influence of such a substance - Accidental injuries to yourself or others while you are under the influence of the drug (in a car or at home). - HIV infection (much greater risk if you use IV drugs) - Other sexually transmitted diseases (Herpes, chlamydia, gonorrhea and others) - Severe and fatal infection of the heart valves (if you use IV drugs) - Stroke, heart attack, hepatitis B or C, kidney failure - from overdose Home Care: 1) Admit you have a drug problem. Ask for help from your family and close friends. 2) Seek professional help. This could be individual psychotherapy, counseling, or a drug treatment program (outpatient or residential). 3) Join a self-help group for drug abuse. 4) Avoid friends who abuse drugs themselves or tempt you to continue your habit 5) Eat a balanced diet and begin a regular exercise program. Follow Up with your doctor or as advised by our staff. Contact one of the resources below for help. National [place] on Alcoholism and Drug Dependence, www.ncadd.org 203-861-VUAU Narcotics Anonymous (check your phone book for a local listing or call 448-291-6426) www.na.org National Alcohol and Substance Abuse Information Center (for referral to treatment programs) [employer]ww[employer] 650-278-1789 Get Prompt Medical Attention if any of the following occur: -- Symptoms of withdrawal (agitation, anxiety, trembling, sweats, diarrhea, unable to sleep) -- Chest pain -- Unexplained fever over 100.4 F (38.0 C) -- Excessive drowsiness or inability to be awakened -- Slow breathing under 8 breaths per minute -- Shortness of breath or cough with colored sputum -- Redness, swelling or tenderness at an injection site Pain Management: Chronic You have a painful condition that has required frequent use of narcotic-type pain medicine. We would like to see that you receive the best possible care for your problem. To achieve this, you must have apersonal physician who can supervise a treatment plan for you. You may locate a personal physician on your own or contact one of the doctors whose name has been given to you. If your physician determines that you need to visit the ER for pain control, that doctor should provide you with a PAIN CONTRACT. This is a letter from your doctor which describes what pain medicine you may receive, how much and how often. You sign it agreeing to the terms of the treatment plan. Bring this with you each time you come to this facility. It will help the Emergency Physician provide the proper treatment for you with minimal delay. Please Note: IN THE FUTURE YOU WILL NOT BE ABLE TO RECEIVE Narcotic Pain Medicine From This Facility Without A Pain Contract Or Telephone Approval From Your Personal Physician. Naproxen Sodium Oral tablet What is this medicine? NAPROXEN (na PROX en) is a non-steroidal anti-inflammatory drug (NSAID). It is used to reduce swelling and to treat pain. This medicine may be used for dental pain, headache, or painful monthly periods. It is also used for painful joint and muscular problems such as arthritis, tendinitis, bursitis, and gout. How should I use this medicine? Take this medicine by mouth with a glass of water. Follow the directions on the prescription label. Take it with food if your stomach gets upset. Try to not lie down for at least 10 minutes after you take it. Take your medicine at regular intervals. Do not take your medicine more often than directed. Long-term, continuous use may increase the risk of heart attack or stroke. A special MedGuide will be given to you by the pharmacist with each prescription and refill. Be sure to read this information carefully each time. Talk to your aquaculture and fisheries professor regarding the use of this medicine in children. Special care may be needed. What side effects may I notice from receiving this medicine? Side effects that you should report to your doctor or health day care attendant as soon as possible: black or bloody stools, blood in the urine or vomit blurred vision chest pain difficulty breathing or wheezing nausea or vomiting severe stomach pain skin rash, skin redness, blistering or peeling skin, hives, or itching slurred speech or weakness on one side of the body swelling of eyelids, throat, lips unexplained weight gain or swelling unusually weak or tired yellowing of eyes or skin Side effects that usually do not require medical attention (report to your doctor or health day care attendant if they continue or are bothersome): constipation headache heartburn What may interact with this medicine? alcohol aspirin cidofovir diuretics lithium methotrexate other drugs for inflammation like ketorolac or prednisone pemetrexed probenecid warfarin What if I miss a dose? If you miss a dose, take it as soon as you can. If it is almost time for your next dose, take only that dose. Do not take double or extra doses. Where should I keep my medicine? Keep out of the reach of children. Store at room temperature between 15 and 30 degrees C (59 and 86 degrees F). Keep container tightly closed. Throw away any unused medicine after the expiration date. What should I tell my health care provider before I take this medicine? They need to know if you have any of these conditions: asthma cigarette smoker drink more than 3 alcohol containing drinks a day heart disease or circulation problems such as heart failure or leg edema (fluid retention) high blood pressure kidney disease liver disease stomach bleeding or ulcers an unusual or allergic reaction to naproxen, aspirin, other NSAIDs, other medicines, foods, dyes, or preservatives or trying to get breast-feeding What should I watch for while using this medicine? Tell your doctor or health day care attendant if your pain does not get better. Talk to your doctor before taking another medicine for pain. Do not treat yourself. This medicine does not prevent heart attack or stroke. In fact, this medicine may increase the chance of a heart attack or stroke. The chance may increase with longer use of this medicine and in people who have heart disease. If you take aspirin to prevent heart attack or stroke, talk with your doctor or health day care attendant. Do not take other medicines that contain aspirin, ibuprofen, or naproxen with this medicine. Side effects such as stomach upset, nausea, or ulcers may be more likely to occur. Many medicines available without a prescription should not be taken with this medicine. This medicine can cause ulcers and bleeding in the stomach and intestines at any time during treatment. Do not smoke cigarettes or drink alcohol. These increase irritation to your stomach and can make it more susceptible to damage from this medicine. Ulcers and bleeding can happen without warning symptoms and can cause . You may get drowsy or dizzy. Do not drive, use machinery, or do anything that needs mental alertness until you know how this medicine affects you. Do not stand or sit up quickly, especially if you are an older patient. This reduces the risk of dizzy or fainting spells. This medicine can cause you to bleed more easily. Try to avoid damage to your teeth and gums when you brush or floss your teeth. You have been given the following additional information: Abdominal Pain, Unknown Cause, (Male) Opiate Abuse Drug Seeking Behavior, Pain Contract Required Naproxen Sodium Oral tablet (Electronically signed by Maria Luisa Pablo A.R.N.P. 08/22/2016 17:19)
--- NOTE | 2016-08-22 17:19 | ED MED RECONCILIATION SUMMARY ---
Patient: GISELA ISRAEL Medication Reconciliation Report [facility] VisitID: [id number] [address] [place] [address] 30y, M Registration Date/Time: 08/22/2016 Weight: 56.6 kg Height/Length: 68 in. BMI: 19.0 ALLERGIES: Erythromycin, Hydrocodone The patient's Home Medications are listed below: THE FOLLOWING MEDICATIONS NEED TO BE RECONCILED: OxyCODONE HCl Oral 10 mg The source(s) of the original Home Medication information: patient The following Medications were given to the patient in the Emergency Department: None. The following Medications were prescribed to the patient: Naprosyn 500 mg tablets: take 1 orally every 12 hours as needed for pain. Dispense twenty (20). No refills. Substitution is permissible. -- Maria Luisa Pablo A.R.N.P.
--- NOTE | 2016-08-22 17:19 | ED MED RECONCILIATION SUMMARY ---
Patient: GISELA ISRAEL Medication Reconciliation Report [facility] VisitID: [id number] [address] [place] [address] 30y, M Registration Date/Time: 08/22/2016 Weight: 56.6 kg Height/Length: 68 in. BMI: 19.0 ALLERGIES: Erythromycin, Hydrocodone The patient's Home Medications are listed below: THE FOLLOWING MEDICATIONS NEED TO BE RECONCILED: OxyCODONE HCl Oral 10 mg The source(s) of the original Home Medication information: patient The following Medications were given to the patient in the Emergency Department: None. The following Medications were prescribed to the patient: Naprosyn 500 mg tablets: take 1 orally every 12 hours as needed for pain. Dispense twenty (20). No refills. Substitution is permissible. -- Maria Luisa Pablo A.R.N.P.
== END 2016-08-22 15:20 | disposition home or self-care (01) ==
LOC: ED SRH 14:11
DX: R10.9 Unspecified abdominal pain (principal); G89.29 Other chronic pain; F11.129 Opioid abuse with intoxication, unspecified; F12.10 Cannabis abuse, uncomplicated; K50.90 Crohn's disease, unspecified, without complications; F17.210 Nicotine dependence, cigarettes, uncomplicated; Z88.1 Allergy status to other antibiotic agents; Z88.5 Allergy status to narcotic agent

== ENCOUNTER 2016-09-26 11:50 | Emergency (ER) | payer OTHER ==
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
--- NOTE | 2016-09-26 13:17 | ED ORDER SUMMARY ---
..... Patient: GISELA ISRAEL OrderSheet [facility] VisitID: [id number] [address] [place] [address] 31y, M Registration Date/Time: 09/26/2016 ORDER SHEET Weight: 56.6 kg (stated) Allergies: Erythromycin, Hydrocodone GENERAL ORDERS: Blood Culture (No) (N/A) Urgent (11:54 09/26/2016 Donna BIRMINGHAM) (Ack 11:57 Leonardo ER Tech1) (12:32 KWilliams R.N.) CBC w Diff Urgent (11:55 09/26/2016 Donna B[place]) (Ack 11:57 Leonardo ER Tech1) (12:03 KWilliams R.N.) CMP Urgent (11:55 09/26/2016 Donna B[place]) (Ack 11:57 Leonardo ER Tech1) (12:03 KWilliams R.N.) UA-Culture if indicated Urgent (11:55 09/26/2016 Donna BIRM[place]) (Ack 11:57 Leonardo ER Tech1) Amylase Urgent (11:55 09/26/2016 Donna BIRM[place]) (Ack 11:57 SHARONeimarianela ER Tech1) (12:03 KWilliams R.N.) Lipase Urgent (11:55 09/26/2016 Donna BIRM[place]) (Ack 11:57 Leonardo ER Tech1) (12:03 KWilliams R.N.) Lactate, Serum Urgent (11:55 09/26/2016 Donna BIRM[place]) (Ack 11:57 Leonardo ER Tech1) (12:03 KWilliams R.N.) Urine Drug Screen Urgent (13:08 09/26/2016 Donna BIRM[place]AM) (Ack 13:10 PWeiler ER Tech1) MEDICATION ORDERS: IV FLUIDS: IV Saline Lock (11:55 09/26/2016 Donna BIRMING[place]AM) (12:13 KWilliams R.N.) ORDER SHEET NOTES: [Electronically signed by Alexander Escobar R.N. (13:29 09/26/2016)] [Electronically signed by Luis Keene MD (15:51 09/26/2016)] [Electronically locked/signed by Alexander Escobar R.N. (13:29 09/26/2016)]
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
--- NOTE | 2016-09-26 13:17 | ED ORDER SUMMARY ---
..... Patient: GISELA ISRAEL OrderSheet [facility] VisitID: [id number] [address] [place] [address] 31y, M Registration Date/Time: 09/26/2016 ORDER SHEET Weight: 56.6 kg (stated) Allergies: Erythromycin, Hydrocodone GENERAL ORDERS: Blood Culture (No) (N/A) Urgent (11:54 09/26/2016 Donna BIRMINGHAM) (Ack 11:57 Leonardo ER Tech1) (12:32 KWilliams R.N.) CBC w Diff Urgent (11:55 09/26/2016 Donna BIRMINGHAM) (Ack 11:57 Leonardo ER Tech1) (12:03 KWilliams R.N.) CMP Urgent (11:55 09/26/2016 Donna BIRMINGHAM) (Ack 11:57 Leonardo ER Tech1) (12:03 KWilliams R.N.) UA-Culture if indicated Urgent (11:55 09/26/2016 Donna BIRMINGHAM) (Ack 11:57 Leonardo ER Tech1) Amylase Urgent (11:55 09/26/2016 Donna BIRMINGHAM) (Ack 11:57 SHARONeimarianela ER Tech1) (12:03 KWilliams R.N.) Lipase Urgent (11:55 09/26/2016 Donna BIRMINGHAM) (Ack 11:57 Leonardo ER Tech1) (12:03 KWilliams R.N.) Lactate, Serum Urgent (11:55 09/26/2016 Donna BIRMINGHAM) (Ack 11:57 Leonardo ER Tech1) (12:03 KWilliams R.N.) Urine Drug Screen Urgent (13:08 09/26/2016 Donna BIRMINGHAM) (Ack 13:10 PWeiler ER Tech1) MEDICATION ORDERS: IV FLUIDS: IV Saline Lock (11:55 09/26/2016 Donna BIRMINGHAM) (12:13 KWilliams R.N.) ORDER SHEET NOTES: [Electronically signed by Alexander Escobar R.N. (13:29 09/26/2016)] [Electronically signed by Luis Keene MD (15:51 09/26/2016)] [Electronically locked/signed by Alexander Escobar R.N. (13:29 09/26/2016)]
--- NOTE | 2016-09-26 15:51 | ED MAR SUMMARY ---
..... Medication Administration Record [facility] [address] [place], [place] [id number] Patient: GISELA ISRAEL Visit ID: [id number] 31y, M Weight: 56.6 kg Height/Length: 68 in BMI: 19 ALLERGIES: Erythromycin, Hydrocodone
--- NOTE | 2016-09-26 15:51 | ED DISCHARGE INSTRUCTIONS ---
Patient: GISELA ISRAEL General Instructions [facility] VisitID: [id number] [address], [place] [address] 31y, M Registration Date/Time: 09/26/2016 Nausea. Narcotic withdrawal INSTRUCTIONS Drink plenty of fluids. Warnings: Further evaluation is necessary. GENERAL WARNINGS: Return or contact your physician immediately if your condition worsens or changes unexpectedly, if not improving as expected, or if other problems arise. Prescription Medications: Zofran 4 mg: Take 1 orally every six hours as needed for nausea/vomiting. Dispense ten (10). No refills. Substitution is permissible. Clonidine 0.1 mg: take 1 orally every 8 hours. No refills. (9 pills) Understanding of the discharge instructions verbalized by patient. Follow-up with: [facility], , , [address], , [place], [address] Follow up tomorrow. Call for the next available appointment. ADDITIONAL INFORMATION Ondansetron Oral disintegrating tablet What is this medicine? ONDANSETRON (on KONRAD se neal) is used to treat nausea and vomiting caused by chemotherapy. It is also used to prevent or treat nausea and vomiting after surgery. How should I use this medicine? These tablets are made to dissolve in the mouth. Do not try to push the tablet through the foil backing. With dry hands, peel away the foil backing and gently remove the tablet. Place the tablet in the mouth and allow it to dissolve, then swallow. While you may take these tablets with water, it is not necessary to do so. Talk to your ocean freight forwarder regarding the use of this medicine in children. Special care may be needed. What side effects may I notice from receiving this medicine? Side effects that you should report to your doctor or health customer care representative as soon as possible: allergic reactions like skin rash, itching or hives, swelling of the face, lips, or tongue breathing problems dizziness fast or irregular heartbeat feeling faint or lightheaded, falls fever and chills swelling of the hands and feet tightness in the chest Side effects that usually do not require medical attention (report to your doctor or health customer care representative if they continue or are bothersome): constipation or diarrhea headache What may interact with this medicine? Do not take this medicine with any of the following medications: -apomorphine -cisapride -dofetilide -dronedarone -pimozide -thioridazine -ziprasidone This medicine may also interact with the following medications: -carbamazepine -phenytoin -rifampicin -tramadol -other medicines that prolong the QT interval (cause an abnormal heart rhythm) What if I miss a dose? If you miss a dose, take it as soon as you can. If it is almost time for your next dose, take only that dose. Do not take double or extra doses. Where should I keep my medicine? Keep out of the reach of children. Store between 2 and 30 degrees C (36 and 86 degrees F). Throw away any unused medicine after the expiration date. What should I tell my health care provider before I take this medicine? They need to know if you have any of these conditions: heart disease history of irregular heartbeat liver disease low levels of magnesium or potassium in the blood an unusual or allergic reaction to ondansetron, granisetron, other medicines, foods, dyes, or preservatives or trying to get breast-feeding What should I watch for while using this medicine? Check with your doctor or health customer care representative as soon as you can if you have any sign of an allergic reaction. Clonidine Hydrochloride Oral tablet What is this medicine? CLONIDINE (KLOE ni silvina) is used to treat high blood pressure. How should I use this medicine? Take this medicine by mouth with a glass of water. Follow the directions on the prescription label. Take your doses at regular intervals. Do not take your medicine more often than directed. Do not suddenly stop taking this medicine. You must gradually reduce the dose or you may get a dangerous increase in blood pressure. Ask your doctor or health customer care representative for advice. Talk to your ocean freight forwarder regarding the use of this medicine in children. Special care may be needed. What side effects may I notice from receiving this medicine? Side effects that you should report to your doctor or health customer care representative as soon as possible: allergic reactions like skin rash, itching or hives, swelling of the face, lips, or tongue anxiety, nervousness chest pain depression fast, irregular heartbeat swelling of feet or legs unusually weak or tired Side effects that usually do not require medical attention (report to your doctor or health customer care representative if they continue or are bothersome): change in sex drive or performance constipation headache What may interact with this medicine? Do not take this medicine with any of the following medications: MAOIs like Carbex, Eldepryl, Marplan, Nardil, and Parnate This medicine may also interact with the following medications: barbiturate medicines for inducing sleep or treating seizures like phenobarbital certain medicines for blood pressure, heart disease, irregular heart beat certain medicines for depression, anxiety, or psychotic disturbances prescription pain medicines What if I miss a dose? If you miss a dose, take it as soon as you can. If it is almost time for your next dose, take only that dose. Do not take double or extra doses. Where should I keep my medicine? Keep out of the reach of children. Store at room temperature between 15 and 30 degrees C (59 and 86 degrees F). Protect from light. Keep container tightly closed. Throw away any unused medicine after the expiration date. What should I tell my health care provider before I take this medicine? They need to know if you have any of these conditions: kidney disease an unusual or allergic reaction to clonidine, other medicines, foods, dyes, or preservatives or trying to get breast-feeding What should I watch for while using this medicine? Visit your doctor or health customer care representative for regular checks on your progress. Check your heart rate and blood pressure regularly while you are taking this medicine. Ask your doctor or health customer care representative what your heart rate should be and when you should contact him or her. You may get drowsy or dizzy. Do not drive, use machinery, or do anything that needs mental alertness until you know how this medicine affects you. To avoid dizzy or fainting spells, do not stand or sit up quickly, especially if you are an older person. Alcohol can make you more drowsy and dizzy. Avoid alcoholic drinks. Your mouth may get dry. Chewing sugarless gum or sucking hard candy, and drinking plenty of water will help. Do not treat yourself for coughs, colds, or pain while you are taking this medicine without asking your doctor or health customer care representative for advice. Some ingredients may increase your blood pressure. If you are going to have surgery tell your doctor or health customer care representative that you are taking this medicine. You have been given the following additional information: Ondansetron Oral disintegrating tablet Clonidine Hydrochloride Oral tablet (Electronically signed by Luis Keene MD 09/26/2016 15:51)
--- NOTE | 2016-09-26 15:51 | ED MAR SUMMARY ---
..... Medication Administration Record [address], [place] [id number] Patient: GISELA ISRAEL Visit ID: [id number] 31y, M Weight: 56.6 kg Height/Length: 68 in BMI: 19 ALLERGIES: Erythromycin, Hydrocodone
--- NOTE | 2016-09-26 15:51 | ED MED RECONCILIATION SUMMARY ---
Patient: GISELA ISRAEL Medication Reconciliation Report [facility] VisitID: [id number] [address] [place] [address] 31y, M Registration Date/Time: 09/26/2016 Weight: 56.6 kg Height/Length: 68 in. BMI: 19.0 ALLERGIES: Erythromycin, Hydrocodone The patient's Home Medications are listed below: NONE. The source(s) of the original Home Medication information: patient The following Medications were given to the patient in the Emergency Department: None. The following Medications were prescribed to the patient: Zofran 4 mg: Take 1 orally every six hours as needed for nausea/vomiting. Dispense ten (10). No refills. Substitution is permissible. -- Luis Keene MD Clonidine 0.1 mg: take 1 orally every 8 hours. No refills.(9 pills) -- Luis Keene MD
--- NOTE | 2016-09-26 15:51 | ED MED RECONCILIATION SUMMARY ---
Patient: GISELA ISRAEL Medication Reconciliation Report [facility] VisitID: [id number] [address] [place] [address] 31y, M Registration Date/Time: 09/26/2016 Weight: 56.6 kg Height/Length: 68 in. BMI: 19.0 ALLERGIES: Erythromycin, Hydrocodone The patient's Home Medications are listed below: NONE. The source(s) of the original Home Medication information: patient The following Medications were given to the patient in the Emergency Department: None. The following Medications were prescribed to the patient: Zofran 4 mg: Take 1 orally every six hours as needed for nausea/vomiting. Dispense ten (10). No refills. Substitution is permissible. -- Luis Keene MD Clonidine 0.1 mg: take 1 orally every 8 hours. No refills.(9 pills) -- Luis Keene MD
--- NOTE | 2016-09-26 15:51 | ED DISCHARGE INSTRUCTIONS ---
Patient: GISELA ISRAEL General Instructions [facility] VisitID: [id number] [address], [place] [address] 31y, M Registration Date/Time: 09/26/2016 Nausea. Narcotic withdrawal INSTRUCTIONS Drink plenty of fluids. Warnings: Further evaluation is necessary. GENERAL WARNINGS: Return or contact your physician immediately if your condition worsens or changes unexpectedly, if not improving as expected, or if other problems arise. Prescription Medications: Zofran 4 mg: Take 1 orally every six hours as needed for nausea/vomiting. Dispense ten (10). No refills. Substitution is permissible. Clonidine 0.1 mg: take 1 orally every 8 hours. No refills. (9 pills) Understanding of the discharge instructions verbalized by patient. Follow-up with: [facility], , , [address], , [place], [address] Follow up tomorrow. Call for the next available appointment. ADDITIONAL INFORMATION Ondansetron Oral disintegrating tablet What is this medicine? ONDANSETRON (on KONRAD se neal) is used to treat nausea and vomiting caused by chemotherapy. It is also used to prevent or treat nausea and vomiting after surgery. How should I use this medicine? These tablets are made to dissolve in the mouth. Do not try to push the tablet through the foil backing. With dry hands, peel away the foil backing and gently remove the tablet. Place the tablet in the mouth and allow it to dissolve, then swallow. While you may take these tablets with water, it is not necessary to do so. Talk to your research spec regarding the use of this medicine in children. Special care may be needed. What side effects may I notice from receiving this medicine? Side effects that you should report to your doctor or health childcare worker as soon as possible: allergic reactions like skin rash, itching or hives, swelling of the face, lips, or tongue breathing problems dizziness fast or irregular heartbeat feeling faint or lightheaded, falls fever and chills swelling of the hands and feet tightness in the chest Side effects that usually do not require medical attention (report to your doctor or health childcare worker if they continue or are bothersome): constipation or diarrhea headache What may interact with this medicine? Do not take this medicine with any of the following medications: -apomorphine -cisapride -dofetilide -dronedarone -pimozide -thioridazine -ziprasidone This medicine may also interact with the following medications: -carbamazepine -phenytoin -rifampicin -tramadol -other medicines that prolong the QT interval (cause an abnormal heart rhythm) What if I miss a dose? If you miss a dose, take it as soon as you can. If it is almost time for your next dose, take only that dose. Do not take double or extra doses. Where should I keep my medicine? Keep out of the reach of children. Store between 2 and 30 degrees C (36 and 86 degrees F). Throw away any unused medicine after the expiration date. What should I tell my health care provider before I take this medicine? They need to know if you have any of these conditions: heart disease history of irregular heartbeat liver disease low levels of magnesium or potassium in the blood an unusual or allergic reaction to ondansetron, granisetron, other medicines, foods, dyes, or preservatives or trying to get breast-feeding What should I watch for while using this medicine? Check with your doctor or health childcare worker as soon as you can if you have any sign of an allergic reaction. Clonidine Hydrochloride Oral tablet What is this medicine? CLONIDINE (KLOE ni silvina) is used to treat high blood pressure. How should I use this medicine? Take this medicine by mouth with a glass of water. Follow the directions on the prescription label. Take your doses at regular intervals. Do not take your medicine more often than directed. Do not suddenly stop taking this medicine. You must gradually reduce the dose or you may get a dangerous increase in blood pressure. Ask your doctor or health childcare worker for advice. Talk to your research spec regarding the use of this medicine in children. Special care may be needed. What side effects may I notice from receiving this medicine? Side effects that you should report to your doctor or health childcare worker as soon as possible: allergic reactions like skin rash, itching or hives, swelling of the face, lips, or tongue anxiety, nervousness chest pain depression fast, irregular heartbeat swelling of feet or legs unusually weak or tired Side effects that usually do not require medical attention (report to your doctor or health childcare worker if they continue or are bothersome): change in sex drive or performance constipation headache What may interact with this medicine? Do not take this medicine with any of the following medications: MAOIs like Carbex, Eldepryl, Marplan, Nardil, and Parnate This medicine may also interact with the following medications: barbiturate medicines for inducing sleep or treating seizures like phenobarbital certain medicines for blood pressure, heart disease, irregular heart beat certain medicines for depression, anxiety, or psychotic disturbances prescription pain medicines What if I miss a dose? If you miss a dose, take it as soon as you can. If it is almost time for your next dose, take only that dose. Do not take double or extra doses. Where should I keep my medicine? Keep out of the reach of children. Store at room temperature between 15 and 30 degrees C (59 and 86 degrees F). Protect from light. Keep container tightly closed. Throw away any unused medicine after the expiration date. What should I tell my health care provider before I take this medicine? They need to know if you have any of these conditions: kidney disease an unusual or allergic reaction to clonidine, other medicines, foods, dyes, or preservatives or trying to get breast-feeding What should I watch for while using this medicine? Visit your doctor or health childcare worker for regular checks on your progress. Check your heart rate and blood pressure regularly while you are taking this medicine. Ask your doctor or health childcare worker what your heart rate should be and when you should contact him or her. You may get drowsy or dizzy. Do not drive, use machinery, or do anything that needs mental alertness until you know how this medicine affects you. To avoid dizzy or fainting spells, do not stand or sit up quickly, especially if you are an older person. Alcohol can make you more drowsy and dizzy. Avoid alcoholic drinks. Your mouth may get dry. Chewing sugarless gum or sucking hard candy, and drinking plenty of water will help. Do not treat yourself for coughs, colds, or pain while you are taking this medicine without asking your doctor or health childcare worker for advice. Some ingredients may increase your blood pressure. If you are going to have surgery tell your doctor or health childcare worker that you are taking this medicine. You have been given the following additional information: Ondansetron Oral disintegrating tablet Clonidine Hydrochloride Oral tablet (Electronically signed by Luis Keene MD 09/26/2016 15:51)
== END 2016-09-26 13:23 | disposition home or self-care (01) ==
LOC: ED SRH 11:50
DX: F11.23 Opioid dependence with withdrawal (principal); R11.2 Nausea with vomiting, unspecified; K50.90 Crohn's disease, unspecified, without complications; F17.210 Nicotine dependence, cigarettes, uncomplicated; Z88.1 Allergy status to other antibiotic agents; Z88.5 Allergy status to narcotic agent
CPT/HCPCS: 90065; 90074; 90100; 92031; 92235; 92530; 95059

== ENCOUNTER 2016-10-11 22:42 | Emergency (ER) | payer OTHER ==
--- NOTE | 2016-10-11 23:34 | ED ORDER SUMMARY ---
..... Patient: GISELA ISRAEL OrderSheet [facility] VisitID: [id number] [address] [place] [address] 31y, M Registration Date/Time: 10/11/2016 ORDER SHEET Weight: 54.4 kg (stated) Allergies: Erythromycin, Hydrocodone GENERAL ORDERS: MEDICATION ORDERS: Percocet PO 5/325 mg (HIGH ALERT MEDICATION, NOW) (23:24 10/11/2016 Laurel Harkins) (Ack 23:29 Staci R.Asia) (23:31 Staci Beaulieu.Asia) IV FLUIDS: ORDER SHEET NOTES: [Electronically signed by Jeannette Gonzalez P.A.-C (23:58 10/11/2016)] [Electronically signed by Juany Stodadrd R.N. (00:05 10/12/2016)] [Electronically locked/signed by Juany Stoddard R.N. (00:05 10/12/2016)]
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
--- NOTE | 2016-10-11 23:34 | ED ORDER SUMMARY ---
..... Patient: GISELA ISRAEL OrderSheet [facility] VisitID: [id number] [address] [place] [address] 31y, M Registration Date/Time: 10/11/2016 ORDER SHEET Weight: 54.4 kg (stated) Allergies: Erythromycin, Hydrocodone GENERAL ORDERS: MEDICATION ORDERS: Percocet PO 5/325 mg (HIGH ALERT MEDICATION, NOW) (23:24 10/11/2016 Laurel Harkins) (Ack 23:29 Staci R.Asia) (23:31 Staci Beaulieu.Asia) IV FLUIDS: ORDER SHEET NOTES: [Electronically signed by Jeannette Gonzalez P.A.-C (23:58 10/11/2016)] [Electronically signed by Juany Stoddard R.N. (00:05 10/12/2016)] [Electronically locked/signed by Juany Stoddard R.N. (00:05 10/12/2016)]
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
--- NOTE | 2016-10-12 00:05 | ED MED RECONCILIATION SUMMARY ---
Patient: GISELA ISRAEL Medication Reconciliation Report [facility] VisitID: [id number] [address] [place] [address] 31y, M Registration Date/Time: 10/11/2016 Weight: 54.4 kg Height/Length: 68 in. BMI: 18.2 ALLERGIES: Erythromycin, Hydrocodone The patient's Home Medications are listed below: THE FOLLOWING MEDICATIONS NEED TO BE RECONCILED: Antibiotic 1 pill, 2x a day The source(s) of the original Home Medication information: Not obtained. The following Medications were given to the patient in the Emergency Department: Percocet [PO] PO 1 tab, administered: 10/11/2016 11:31:00 PM The following Medications were prescribed to the patient: Oxycodone 5 mg tablets: take 1 orally every 8 hours as needed for pain. Dispense ten (10). No refill. -- Jeannette Gonzalez, PAlexeiAAlexei-C
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
--- NOTE | 2016-10-12 00:05 | ED MED RECONCILIATION SUMMARY ---
Patient: GISELA ISRAEL Medication Reconciliation Report [facility] VisitID: [id number] [address] [place] [address] 31y, M Registration Date/Time: 10/11/2016 Weight: 54.4 kg Height/Length: 68 in. BMI: 18.2 ALLERGIES: Erythromycin, Hydrocodone The patient's Home Medications are listed below: THE FOLLOWING MEDICATIONS NEED TO BE RECONCILED: Antibiotic 1 pill, 2x a day The source(s) of the original Home Medication information: Not obtained. The following Medications were given to the patient in the Emergency Department: Percocet [PO] PO 1 tab, administered: 10/11/2016 11:31:00 PM The following Medications were prescribed to the patient: Oxycodone 5 mg tablets: take 1 orally every 8 hours as needed for pain. Dispense ten (10). No refill. -- Jeannette Gonzalez, PAlexeiAAlexei-C
--- NOTE | 2016-10-12 00:05 | ED MAR SUMMARY ---
..... Medication Administration Record [facility] [address] [place] [address] Patient: GISELA ISRAEL Visit ID: [id number] 31y, M Weight: 54.4 kg Height/Length: 68 in BMI: 18.2 ALLERGIES: Erythromycin, Hydrocodone Given 23:31 10/11/2016 Juany Stoddard R.N. Medication Administered: PERCOCET [PO] (OXYCODONE-ACETAMINOPHEN), Dose: 1 tab 5/325 mg Tablets PO. Medication Ordered: Percocet PO 5/325 mg (HIGH ALERT MEDICATION, NOW).
--- NOTE | 2016-10-12 00:05 | ED MAR SUMMARY ---
..... Medication Administration Record [facility] [address] [place] [address] Patient: GISELA ISRAEL Visit ID: [id number] 31y, M Weight: 54.4 kg Height/Length: 68 in BMI: 18.2 ALLERGIES: Erythromycin, Hydrocodone Given 23:31 10/11/2016 Juany Stoddard R.N. Medication Administered: PERCOCET [PO] (OXYCODONE-ACETAMINOPHEN), Dose: 1 tab 5/325 mg Tablets PO. Medication Ordered: Percocet PO 5/325 mg (HIGH ALERT MEDICATION, NOW).
== END 2016-10-11 23:47 | disposition home or self-care (01) ==
LOC: ED SRH 22:42
DX: L02.411 Cutaneous abscess of right axilla (principal); T22.212D Burn of second degree of left forearm, subsequent encounter; X58.XXXD Exposure to other specified factors, subsequent encounter; Z79.2 Long term (current) use of antibiotics; Z88.1 Allergy status to other antibiotic agents; Z88.5 Allergy status to narcotic agent